=== PATIENT | male | born 1975 | race Two or more races ===

== ENCOUNTER 2022-09-05 19:41 | Emergency (ER) | payer OTHER, SELFPAY ==
--- NOTE | ~2022-09-05 | CT_ITS ---
EXAMINATION: CT ABDOMEN AND PELVIS WITH CONTRAST CLINICAL INFORMATION: Abdominal pain COMPARISON: None TECHNIQUE: Multidetector volumetric images were obtained from the superior aspect of the liver through the pubic symphysis following administration 85 mL of Omnipaque 350 intravenous contrast. Sagittal and coronal reformatted images were obtained on the technologist's workstation. Oral contrast: No This CT examination was performed using dose optimization techniques as appropriate, variously including the following: *Automated exposure control *Adjustment of mA and/or kV according to patient size (this includes techniques or standardized protocols for targeted exams where dose is matched to indication/reason for exam; i.e. extremities or head) *Use of iterative reconstruction technique DLP: 706 mGy-cm FINDINGS: LUNG BASES: The visualized lung bases are unremarkable. LIVER, GALLBLADDER, AND BILIARY TREE: Mild fatty change of liver. No focal liver lesion. No intrahepatic bile duct dilatation. The gallbladder is unremarkable with no evidence of radiopaque gallstones, gallbladder wall thickening, or obvious pericholecystic inflammatory changes. PANCREAS: Unremarkable. SPLEEN: Unremarkable. ADRENAL GLANDS: Unremarkable. KIDNEYS AND URETERS: The kidneys are normal in size, shape, and attenuation. No hydronephrosis, hydroureter, or calculi seen. No perinephric stranding. There are 2 cortical cyst at the mid lower pole of the left kidney. No follow-up imaging is recommended for simple renal cyst. BLADDER: Unremarkable. GASTROINTESTINAL TRACT: The small and large bowel are unremarkable. The appendix is nonvisualized. No inflammation the mesentery.. ABDOMINAL WALL: No significant hernia is appreciated. LYMPH NODES: Normal. VASCULAR: Unremarkable. PELVIC VISCERA: Unremarkable. OSSEOUS STRUCTURES: Unremarkable. CT/CT abdomen pelvis w IV con IMPRESSION: No acute abnormality CT scan abdomen pelvis. Fleischner guidelines were followed.
--- NOTE | 2022-09-05 19:44 | ED_ITS ---
HPI - General Adult General Chief complaint: Abdominal Pain <KARISSA Anthony - Last Filed: 09/05/22 19:45> Stated complaint: abdominal/back pain <KARISSA Anthony - Last Filed: 09/05/22 19:45> Time Seen by Provider: 09/05/22 20:35 <KARISSA Anthony - Last Filed: 09/05/22 19:45> Source: patient <Yair Machado MD - Last Filed: 09/05/22 23:03> Mode of arrival: ambulatory <Yair Machado MD - Last Filed: 09/05/22 23:03> Limitations: no limitations <Yair Machado MD - Last Filed: 09/05/22 23:03> History of Present Illness HPI narrative: Patient presents to the emergency department complaining of abdominal pain x3 days, nausea vomiting as well the pain is in the upper abdomen <Yair Machado MD - Last Filed: 09/05/22 23:03> Onset (ago): day(s) (2) <Yair Machado MD - Last Filed: 09/05/22 23:03> Radiation: non-radiation <Yair Machado MD - Last Filed: 09/05/22 23:03> Severity: moderate <Yair Machado MD - Last Filed: 09/05/22 23:03> Quality: burning <Yair Machado MD - Last Filed: 09/05/22 23:03> Pain Consistency: constant <Yair Machado MD - Last Filed: 09/05/22 23:03> Exacerbating factors: none <Yair Machado MD - Last Filed: 09/05/22 23:03> Treatments prior to arrival: none <Yair Machdao MD - Last Filed: 09/05/22 23:03> Related Data Home medications: Previous Rx's Medication Instructions Recorded omeprazole magnesium 10 mg oral 20 mg PO DAILY #30 ea 09/05/22 suspension,delayed release (Prilosec) ondansetron HCl 4 mg tablet 4 mg PO Q8H PRN nausea and 09/05/22 vomiting 3 days #12 tabs <KARISSA Anthony - Last Filed: 09/05/22 19:45> Allergies/adverse reactions: Allergies Allergy/AdvReac Type Severity Reaction Status Date / Time No Known Allergies Allergy Verified 09/05/22 19:49 <KARISSA Anthony - Last Filed: 09/05/22 19:45> Review of Systems Constitutional: Constitutional: Reports no additional constitutional complaints <Yair Machado MD - Last Filed: 09/05/22 23:03> Eyes: Eyes: Reports no additional eye complaints <Yair Machado MD - Last Filed: 09/05/22 23:03> Cardiovascular: Cardiovascular: Reports no additional cardiovascular complaints <Yair Machado MD - Last Filed: 09/05/22 23:03> Respiratory: Respiratory: Reports no additional respiratory complaints <Yair Machado MD - Last Filed: 09/05/22 23:03> Musculoskeletal: Musculoskeletal: Reports no additional musculoskeletal complaints <Yair Machado MD - Last Filed: 09/05/22 23:03> [facility] Past Medical History [facility] Narrative: none <Yair Machado MD - Last Filed: 09/05/22 23:03> Social History Social History: Social History Alcohol intake: never Smoked in Last 30 Days: No Use of substances other than those prescribed or required for medical reasons: No Advance Directives: No Advance Directives Information Provided: No <KARISSA Anthony - Last Filed: 09/05/22 19:45> Physical Exam ED Vital Signs: Vital Signs - 24 hr 09/05/22 19:46 09/05/22 20:30 09/05/22 20:57 Temperature 97.8 F 98.4 F Pulse Rate 86 85 Respiratory Rate 16 16 18 Blood Pressure 154/78 H 133/82 Pulse Oximetry 98 97 Oxygen Delivery Method Room Air Room Air 09/05/22 21:55 Temperature 98.5 F Pulse Rate 78 Respiratory Rate 17 Blood Pressure 138/70 Pulse Oximetry 95 Oxygen Delivery Method Room Air BMI result Body Mass Index 28.8 <KARISSA Anthony - Last Filed: 09/05/22 19:45> Vital Signs - 24 hr 09/05/22 19:46 09/05/22 20:30 09/05/22 20:57 Temperature 97.8 F 98.4 F Pulse Rate 86 85 Respiratory Rate 16 16 18 Blood Pressure 154/78 H 133/82 Pulse Oximetry 98 97 Oxygen Delivery Method Room Air Room Air 09/05/22 21:55 Temperature 98.5 F Pulse Rate 78 Respiratory Rate 17 Blood Pressure 138/70 Pulse Oximetry 95 Oxygen Delivery Method Room Air BMI result Body Mass Index 28.8 <Yair Machado MD - Last Filed: 09/05/22 23:03> Const General: cooperative <Yair Machado MD - Last Filed: 09/05/22 23:03> Orientation/consciousness: patient oriented x3 <Yair Machado MD - Last Filed: 09/05/22 23:03> HENMT Head: Yes normal to inspection <Yair Machado MD - Last Filed: 09/05/22 23:03> Ears: hearing grossly normal bilaterally <Yair Machado MD - Last Filed: 09/05/22 23:03> Face and sinus: Yes normal facial exam <Yair Machado MD - Last Filed: 09/05/22 23:03> Mouth: Normal oral and palatal mucosa present <Yair Machado MD - Last Filed: 09/05/22 23:03> Neck Neck: Yes normal visual inspection <Yair Machado MD - Last Filed: 09/05/22 23:03> Chest Chest palpation & inspection: normal inspection of the chest <Yair Machado MD - Last Filed: 09/05/22 23:03> Resp Effort & Inspection: normal respiratory effort <Yair Machado MD - Last Filed: 09/05/22 23:03> Cardio Jugular venous distension: no JVD <Yair Machado MD - Last Filed: 09/05/22 23:03> Rate: regular rate <Yair Machado MD - Last Filed: 09/05/22 23:03> Rhythm: regular rhythm <Yair Machado MD - Last Filed: 09/05/22 23:03> GI Inspection: Yes normal to inspection <Yair Machado MD - Last Filed: 09/05/22 23:03> Palpation (GI): Soft to palpation, Tenderness to palpation present (GI), no guarding and not rigid <Yair Machado MD - Last Filed: 09/05/22 23:03> Skin General skin exam: no rashes or lesions noted <Yair Machado MD - Last Filed: 09/05/22 23:03> Neuro General: patient oriented x3 <Yair Machado MD - Last Filed: 09/05/22 23:03> Course Course Course Narrative: RME performed by Chelsea Valencia PA-C. Patient is a 47 year old male presenting to the emergency department with abdominal pain. Patient states that the pain is across his entire abdomen and goes into the back. Labs ordered. Patient placed back in the waiting room pending results and room availability. <KARISSA Anthony - Last Filed: 09/05/22 19:45> Reevaluation(s) Reevaluation #1: better,pain gone ct scan normal but appendix no visualized,this was dislose to the pt will return if recurrent pain,at this time he has no pain in rt lower quadrant nor tenderness localized in the rt lower quadrant. <Yair Machado MD - Last Filed: 09/05/22 23:03> Time: 22:55 <Yair Machado MD - Last Filed: 09/05/22 23:03> Medications Administered Discontinued Medications Generic Name Dose Route Start Last Admin Trade Name Freq PRN Reason Stop Dose Admin Sodium Chloride 1,000 mls @ 999 mls/hr 09/05/22 21:15 09/05/22 21:07 Ns IVCONT 09/05/22 22:15 999 mls/hr .Q1H1M DONNA Administration Iohexol 100 ml 09/05/22 21:32 09/05/22 21:32 Iohexol 350 Mg/Ml 100 Ml Infus..Btl IV 09/05/22 21:33 85 ml ONCE ONE Administration Morphine Sulfate 4 mg 09/05/22 20:51 09/05/22 20:57 Morphine Sulfate 4 Mg/Ml Cartridge IVPUSH 09/05/22 20:52 4 mg ONCE ONE Administration Protocol Ondansetron HCl 4 mg 09/05/22 20:52 09/05/22 20:57 Ondansetron Hcl 4 Mg/2 Ml Vial IVPUSH 09/05/22 20:53 4 mg ONCE ONE Administration <KARISSA Anthony - Last Filed: 09/05/22 19:45> Medications Administered Discontinued Medications Generic Name Dose Route Start Last Admin Trade Name [place] PRN Reason Stop Dose Admin Sodium Chloride 1,000 mls @ 999 mls/hr 09/05/22 21:15 09/05/22 21:07 Ns IVCONT 09/05/22 22:15 999 mls/hr .Q1H1M DONNA Administration Iohexol 100 ml 09/05/22 21:32 09/05/22 21:32 Iohexol 350 Mg/Ml 100 Ml Infus..Btl IV 09/05/22 21:33 85 ml ONCE ONE Administration Morphine Sulfate 4 mg 09/05/22 20:51 09/05/22 20:57 Morphine Sulfate 4 Mg/Ml Cartridge IVPUSH 09/05/22 20:52 4 mg ONCE ONE Administration Protocol Ondansetron HCl 4 mg 09/05/22 20:52 09/05/22 20:57 Ondansetron Hcl 4 Mg/2 Ml Vial IVPUSH 09/05/22 20:53 4 mg ONCE ONE Administration <Yair Machado MD - Last Filed: 09/05/22 23:03> Medical Decision Making Medical Decision Making MDM Narrative: Presented with abdominal pain will get labs CT <Yair Machado MD - Last Filed: 09/05/22 23:03> Differential Diagnosis Differential Diagnoses: The differential diagnosis associated with the presentation includes <Yair Machado MD - Last Filed: 09/05/22 23:03> Differential diagnosis colitis diverticulitis small-bowel obstruction <Yair Machado MD - Last Filed: 09/05/22 23:03> Consult Healthcare Provider Management of the patient was discussed with: Hospitalist <Yair Machado MD - Last Filed: 09/05/22 23:03> Lab Data Result Diagrams: 09/05/22 Unknown 09/05/22 Unknown <KARISSA Anthony - Last Filed: 09/05/22 19:45> Labs: Lab Results 09/05/22 09/05/22 09/05/22 Range/Units 20:33 Unknown Unknown WBC 12.5 H (4.8-10.8) X10*3/uL RBC 5.87 H (4.60-5.80) X10*6/uL Hgb 16.1 (14.0-18.0) g/dl Hct 47.6 (42.0-52.0) % MCV 81.1 (80.0-98.0) fL MCH 27.4 (27.0-33.0) pg MCHC 33.8 (31.0-36.0) g/dl RDW 12.0 (11.0-16.0) % Plt Count 71 L (160-400) X10*3/uL MPV 10.1 (9.4-12.4) fL Immature Gran % (Auto) 0.4 (0.0-0.4) % Neut % (Auto) 88.7 H (45-73) % Lymph % (Auto) 5.7 L (20-40) % Humphreys % (Auto) 4.8 (2-11) % Eos % (Auto) 0.2 (0-4) % Baso % (Auto) 0.2 (0-2) % Lymph # (Auto) 0.7 L (1.2-4.9) X10*3/uL Humph[place]ys # (Auto) 0.6 (0.1-1.2) X10*3/uL Eos # (Auto) 0.0 (0.0-0.4) X10*3/uL Baso # (Auto) 0.0 (0.0-0.2) X10*3/uL Abs Immat Gran (auto) 0.05 H (0.00-0.03) X10*3/uL Absolute Neuts (auto) 11.1 H (2.0-8.3) x10*3/uL Absolute Nucleated RBC 0.000 (0.0-0.012) X10*3/uL Nucleated RBC % (auto) 0.0 (0.0-0.2) /100WBC Sodium 139 (135-145) mmol/L Potassium 4.1 (3.3-5.1) mmol/L Chloride 97 (96-108) mmol/L Carbon Dioxide 31 H (22-29) mmol/L Anion Gap 15 (12-20) BUN 12 (9-16) mg/dL Creatinine 1.10 (0.5-1.4) mg/dL Estim Creat Clear Calc 87.7 Estimated GFR > 60 Random Glucose 306 H (60-115) mg/dL Calcium 9.6 (8.4-10.2) mg/dL Magnesium 1.9 (1.6-2.6) mg/dL Total Bilirubin 1.8 H (0.0-1.0) mg/dL AST 20 (5-37) U/L ALT 40 (0-40) U/L Alkaline Phosphatase 82 (39-117) U/L Total Protein 7.0 (6.5-8.0) g/dL Albumin 4.4 (3.5-5.0) g/dL Lipase 75 (8-78) U/L Urine Color Yellow Urine Appearance Clear Urine pH 6.0 (5.0-9.0) Ur Specific [place] >= 1.030 H (1.005-1.025) Urine Protein Negative (Neg-Trace) mg/dL Urine Glucose (UA) >=1000 H (Negative) mg/dL Urine Ketones Negative (Negative) mg/dL Urine Blood Negative (Negative) Urine Nitrite Negative (Negative) Ur Leukocyte Esterase Negative (Negative) Urine RBC 0-2 (0-2) /HPF Urine WBC 0-5 (0-5) /HPF Ur Squamous Epith Cells 0-2 (0-2) /HPF Urine Bacteria None Seen (None Seen) Hyaline Casts 0-2 (0-2) /LPF Influenza Type A (PCR) (Negative) Influenza Type B (PCR) (Negative) RSV RNA Qual (PCR) (Negative) SARS-CoV-2 RNA (RT-PCR) (Negative) 09/05/22 Range/Units Unknown WBC (4.8-10.8) X10*3/uL RBC (4.60-5.80) X10*6/uL Hgb (14.0-18.0) g/dl Hct (42.0-52.0) % MCV (80.0-98.0) fL MCH (27.0-33.0) pg MCHC (31.0-36.0) g/dl RDW (11.0-16.0) % Plt Count (160-400) X10*3/uL MPV (9.4-12.4) fL Immature Gran % (Auto) (0.0-0.4) % Neut % (Auto) (45-73) % Lymph % (Auto) (20-40) % Humphreys % (Auto) (2-11) % Eos % (Auto) (0-4) % Baso % (Auto) (0-2) % Lymph # (Auto) (1.2-4.9) X10*3/uL [place] # (Auto) (0.1-1.2) X10*3/uL Eos # (Auto) (0.0-0.4) X10*3/uL Baso # (Auto) (0.0-0.2) X10*3/uL Abs Immat Gran (auto) (0.00-0.03) X10*3/uL Absolute Neuts (auto) (2.0-8.3) x10*3/uL Absolute Nucleated RBC (0.0-0.012) X10*3/uL Nucleated RBC % (auto) (0.0-0.2) /100WBC Sodium (135-145) mmol/L Potassium (3.3-5.1) mmol/L Chloride (96-108) mmol/L Carbon Dioxide (22-29) mmol/L Anion Gap (12-20) BUN (9-16) mg/dL Creatinine (0.5-1.4) mg/dL Estim Creat Clear Calc Estimated GFR Random Glucose (60-115) mg/dL Calcium (8.4-10.2) mg/dL Magnesium (1.6-2.6) mg/dL Total Bilirubin (0.0-1.0) mg/dL AST (5-37) U/L ALT (0-40) U/L Alkaline Phosphatase (39-117) U/L Total Protein (6.5-8.0) g/dL Albumin (3.5-5.0) g/dL Lipase (8-78) U/L Urine Color Urine Appearance Urine pH (5.0-9.0) Ur Specific [place] (1.005-1.025) Urine Protein (Neg-Trace) mg/dL Urine Glucose (UA) (Negative) mg/dL Urine Ketones (Negative) mg/dL Urine Blood (Negative) Urine Nitrite (Negative) Ur Leukocyte Esterase (Negative) Urine RBC (0-2) /HPF Urine WBC (0-5) /HPF Ur Squamous Epith Cells (0-2) /HPF Urine Bacteria (None Seen) Hyaline Casts (0-2) /LPF Influenza Type A (PCR) NEGATIVE (Negative) Influenza Type B (PCR) NEGATIVE (Negative) RSV RNA Qual (PCR) NEGATIVE (Negative) SARS-CoV-2 RNA (RT-PCR) NEGATIVE (Negative) <KARISSA Anthony - Last Filed: 09/05/22 19:45> Lab Results 09/05/22 09/05/22 09/05/22 Range/Units 20:33 Unknown Unknown WBC 12.5 H (4.8-10.8) X10*3/uL RBC 5.87 H (4.60-5.80) X10*6/uL Hgb 16.1 (14.0-18.0) g/dl Hct 47.6 (42.0-52.0) % MCV 81.1 (80.0-98.0) fL MCH 27.4 (27.0-33.0) pg MCHC 33.8 (31.0-36.0) g/dl RDW 12.0 (11.0-16.0) % Plt Count 71 L (160-400) X10*3/uL MPV 10.1 (9.4-12.4) fL Immature Gran % (Auto) 0.4 (0.0-0.4) % Neut % (Auto) 88.7 H (45-73) % Lymph % (Auto) 5.7 L (20-40) % Humphreys % (Auto) 4.8 (2-11) % Eos % (Auto) 0.2 (0-4) % Baso % (Auto) 0.2 (0-2) % Lymph # (Auto) 0.7 L (1.2-4.9) X10*3/uL [place] # (Auto) 0.6 (0.1-1.2) X10*3/uL Eos # (Auto) 0.0 (0.0-0.4) X10*3/uL Baso # (Auto) 0.0 (0.0-0.2) X10*3/uL Abs Immat Gran (auto) 0.05 H (0.00-0.03) X10*3/uL Absolute Neuts (auto) 11.1 H (2.0-8.3) x10*3/uL Absolute Nucleated RBC 0.000 (0.0-0.012) X10*3/uL Nucleated RBC % (auto) 0.0 (0.0-0.2) /100WBC Sodium 139 (135-145) mmol/L Potassium 4.1 (3.3-5.1) mmol/L Chloride 97 (96-108) mmol/L Carbon Dioxide 31 H (22-29) mmol/L Anion Gap 15 (12-20) BUN 12 (9-16) mg/dL Creatinine 1.10 (0.5-1.4) mg/dL Estim Creat Clear Calc 87.7 Estimated GFR > 60 Random Glucose 306 H (60-115) mg/dL Calcium 9.6 (8.4-10.2) mg/dL Magnesium 1.9 (1.6-2.6) mg/dL Total Bilirubin 1.8 H (0.0-1.0) mg/dL AST 20 (5-37) U/L ALT 40 (0-40) U/L Alkaline Phosphatase 82 (39-117) U/L Total Protein 7.0 (6.5-8.0) g/dL Albumin 4.4 (3.5-5.0) g/dL Lipase 75 (8-78) U/L Urine Color Yellow Urine Appearance Clear Urine pH 6.0 (5.0-9.0) Ur Specific [place] >= 1.030 H (1.005-1.025) Urine Protein Negative (Neg-Trace) mg/dL Urine Glucose (UA) >=1000 H (Negative) mg/dL Urine Ketones Negative (Negative) mg/dL Urine Blood Negative (Negative) Urine Nitrite Negative (Negative) Ur Leukocyte Esterase Negative (Negative) Urine RBC 0-2 (0-2) /HPF Urine WBC 0-5 (0-5) /HPF Ur Squamous Epith Cells 0-2 (0-2) /HPF Urine Bacteria None Seen (None Seen) Hyaline Casts 0-2 (0-2) /LPF Influenza Type A (PCR) (Negative) Influenza Type B (PCR) (Negative) RSV RNA Qual (PCR) (Negative) SARS-CoV-2 RNA (RT-PCR) (Negative) 09/05/22 Range/Units Unknown WBC (4.8-10.8) X10*3/uL RBC (4.60-5.80) X10*6/uL Hgb (14.0-18.0) g/dl Hct (42.0-52.0) % MCV (80.0-98.0) fL MCH (27.0-33.0) pg MCHC (31.0-36.0) g/dl RDW (11.0-16.0) % Plt Count (160-400) X10*3/uL MPV (9.4-12.4) fL Immature Gran % (Auto) (0.0-0.4) % Neut % (Auto) (45-73) % Lymph % (Auto) (20-40) % Humphreys % (Auto) (2-11) % Eos % (Auto) (0-4) % Baso % (Auto) (0-2) % Lymph # (Auto) (1.2-4.9) X10*3/uL [place] # (Auto) (0.1-1.2) X10*3/uL Eos # (Auto) (0.0-0.4) X10*3/uL Baso # (Auto) (0.0-0.2) X10*3/uL Abs Immat Gran (auto) (0.00-0.03) X10*3/uL Absolute Neuts (auto) (2.0-8.3) x10*3/uL Absolute Nucleated RBC (0.0-0.012) X10*3/uL Nucleated RBC % (auto) (0.0-0.2) /100WBC Sodium (135-145) mmol/L Potassium (3.3-5.1) mmol/L Chloride (96-108) mmol/L Carbon Dioxide (22-29) mmol/L Anion Gap (12-20) BUN (9-16) mg/dL Creatinine (0.5-1.4) mg/dL Estim Creat Clear Calc Estimated GFR Random Glucose (60-115) mg/dL Calcium (8.4-10.2) mg/dL Magnesium (1.6-2.6) mg/dL Total Bilirubin (0.0-1.0) mg/dL AST (5-37) U/L ALT (0-40) U/L Alkaline Phosphatase (39-117) U/L Total Protein (6.5-8.0) g/dL Albumin (3.5-5.0) g/dL Lipase (8-78) U/L Urine Color Urine Appearance Urine pH (5.0-9.0) Ur Specific [place] (1.005-1.025) Urine Protein (Neg-Trace) mg/dL Urine Glucose (UA) (Negative) mg/dL Urine Ketones (Negative) mg/dL Urine Blood (Negative) Urine Nitrite (Negative) Ur Leukocyte Esterase (Negative) Urine RBC (0-2) /HPF Urine WBC (0-5) /HPF Ur Squamous Epith Cells (0-2) /HPF Urine Bacteria (None Seen) Hyaline Casts (0-2) /LPF Influenza Type A (PCR) NEGATIVE (Negative) Influenza Type B (PCR) NEGATIVE (Negative) RSV RNA Qual (PCR) NEGATIVE (Negative) SARS-CoV-2 RNA (RT-PCR) NEGATIVE (Negative) <Yair Machado MD - Last Filed: 09/05/22 23:03> Discharge Plan Discharge Clinical Impression: Abdominal pain <KARISSA Anthony - Last Filed: 09/05/22 19:45> Patient Disposition: Home, Self-Care <KARISSA Anthony - Last Filed: 09/05/22 19:45> Instructions: Abdominal Pain (ED) <KARISSA Anthony - Last Filed: 09/05/22 19:45> Additional Instructions: Follow-up with your primary care physician return if you worse recurrent abdominal pain persistent lower abdominal pain with nausea. The provider thet treat you today will be here tomorrow so if you get worse please come back <KARISSA Anthony - Last Filed: 09/05/22 19:45> Prescriptions: New Prilosec 10 mg susp,delayed release for recon 20 mg PO DAILY Qty: 30 0RF ondansetron HCl 4 mg tablet 4 mg PO Q8H PRN (Reason: nausea and vomiting) 3 Days Qty: 12 0RF <KARISSA Anthony - Last Filed: 09/05/22 19:45>
[2022-09-05 19:46] VITALS: BP 154/78; PULSE 86; RESP 16; TEMP 36.6; O2SAT 98; BMI 28.8
[2022-09-05 20:13] LABS: MANUAL DIFF FLAG NO
[2022-09-05 20:20] LABS: Basophils Percent Auto 0.2 % (0-2); Eosinophils Percent Auto 0.2 % (0-4); Hematocrit 47.6 % (42.0-52.0); Hemoglobin 16.1 g/dl (14.0-18.0); Imm Gran Abs Auto 0.05 X10*3/uL (0.00-0.03); Imm Gran Pct Auto 0.4 % (0.0-0.4); Lymphocytes Absolute Auto 0.7 X10*3/uL (1.2-4.9); Lymphocytes Percent Auto 5.7 % (20-40); Mean Corpuscular HGB Conc 33.8 g/dl (31.0-36.0); Mean Corpuscular Hemoglobin 27.4 pg (27.0-33.0); Mean Corpuscular Volume 81.1 fL (80.0-98.0); Mean Platelet Volume 10.1 fL (9.4-12.4); Monocytes Absolute Auto 0.6 X10*3/uL (0.1-1.2); Monocytes Percent Auto 4.8 % (2-11); Neutrophils Absolute Auto 11.1 x10*3/uL (2.0-8.3); Neutrophils Percent Auto 88.7 % (45-73); Red Blood Count 5.87 X10*6/uL (4.60-5.80); White Blood Count 12.5 X10*3/uL (4.8-10.8)
[2022-09-05 20:30] VITALS: BP 133/82; PULSE 85; RESP 16; TEMP 36.9; O2SAT 97
[2022-09-05 20:30] LABS: Alanine Aminotransferase 40 U/L (0-40); Albumin Level 4.4 g/dL (3.5-5.0); Alkaline Phosphatase 82 U/L (39-117); Anion Gap 15 (12-20); Aspartate Amino Transferase 20 U/L (5-37); Bilirubin Total 1.8 mg/dL (0.0-1.0); Blood Urea Nitrogen 12 mg/dL (9-16); Calcium 9.6 mg/dL (8.4-10.2); Carbon Dioxide 31 mmol/L (22-29); Chloride 97 mmol/L (96-108); Creatinine Clr Calc Pharmacy 87.7; Estimated Glomerular Filt Rate > 60; Glucose Random 306 mg/dL (60-115); Lipase 75 U/L (8-78); Magnesium 1.9 mg/dL (1.6-2.6); Potassium 4.1 mmol/L (3.3-5.1); Sodium 139 mmol/L (135-145)
--- NOTE | 2022-09-05 20:33 | MHC.EDTECH ---
THIS PCT ASSUMED CARE OF PATIENT AT 2014 ,VITALS SIGN TAKEN AND URINE SAMPLE SEND TO LAB .
[2022-09-05 20:40] LABS: Appearance Urine Clear; Color Urine Yellow; Glucose Urine UA >=1000 mg/dL (Negative); Leukocyte Esterase Urine Negative (Negative); Nitrite Urine Negative (Negative); Specific Gravity - Urine >= 1.030 (1.005-1.025); UMIC TRIGGER UACC YES; Urine Blood Negative (Negative); Urine Ketones Negative (Negative); Urine Protein Negative (Neg-Trace)
[2022-09-05 20:45] LABS: Bacteria Urine None Seen (None Seen); Hyaline Casts Urine 0-2 /LPF (0-2); RBC Urine 0-2 /HPF (0-2); Squamous Epithelial Cell Urine 0-2 /HPF (0-2); WBC Urine 0-5 /HPF (0-5)
[2022-09-05 20:51] LABS: Platelet Count 71 X10*3/uL (160-400)
[2022-09-05 20:56] LABS: Influenza A PCR NEGATIVE (Negative); Influenza B PCR NEGATIVE (Negative); Resp Syncy Virus RNA Qual PCR NEGATIVE (Negative); SARS COV2 PCR INHOUSE NEGATIVE (Negative)
[2022-09-05 20:57] VITALS: RESP 18
[2022-09-05] MEDS: ondansetron HCL 4 MG/2 ML VIAL IVPUSH (20:57)
[2022-09-05] MEDS: Morphine Sulfate 4 MG/ML CARTRIDGE IVPUSH (20:57)
[2022-09-05] MEDS: 0.9 % Sodium Chloride 1,000 ML 999 ML IVCONT (21:07)
--- NOTE | 2022-09-05 21:10 | PC.NURSE ---
PT A&Ox4, reports constant 10/10 lower abd pain, radiating to lower back for 3 days. PT reports N/V. Last BM was today. ABD tender to touch to lower quadrants, hypoactive bowel sounds.
[2022-09-05] MEDS: iohexoL 350 MG/ML 100 ML INFUS..BTL IV (21:32)
[2022-09-05 21:55] VITALS: BP 138/70; PULSE 78; RESP 17; TEMP 36.9; O2SAT 95
== END 2022-09-05 23:29 | disposition home or self-care (01) ==
PROVIDERS: Physician Assistant Medical; Emergency Provider Emergency Medicine
DX: R10.30 Lower abdominal pain, unspecified (principal); Z20.822 Contact with and (suspected) exposure to COVID-19; Z20.828 Contact with and (suspected) exposure to other viral communicable diseases
CPT/HCPCS: 0241U; 74177; 80053; 81001; 83690; 83735; 85025; 96361; 96374; 96375; 99284; 99285; J2270; J2405; Q9967

== ENCOUNTER 2024-05-17 22:39 | Emergency (ER) | payer OTHER, SELFPAY ==
--- NOTE | ~2024-05-17 | XR_ITS ---
EXAMINATION: XR CHEST CLINICAL INFORMATION: Cough for one week COMPARISON: None available. TECHNIQUE: Frontal view of the chest was obtained. FINDINGS: Normal appearance of the cardiomediastinal structures. No effusions or pneumothoraces. Normal pattern of pulmonary vasculature. No focal pulmonary consolidation. Mild multilevel endplate osteophytosis of the thoracic spine partially visualized. XR/XR chest 1V IMPRESSION: No acute cardiopulmonary abnormalities identified. Lungs clear. Electronically signed by: Colin Shepard MD 05/18/2024 01:28 AM EDT
[2024-05-17 22:49] VITALS: BP 149/76; PULSE 77; RESP 18; TEMP 36.8; O2SAT 97; BMI 28.9
[2024-05-17 23:53] LABS: Influenza A PCR NEGATIVE (Negative); Influenza B PCR NEGATIVE (Negative); Resp Syncy Virus RNA Qual PCR NEGATIVE (Negative); SARS COV2 PCR INHOUSE NEGATIVE (Negative)
--- NOTE | 2024-05-18 00:56 | PC.NURSE ---
Pt no answer when called for available room.
== END 2024-05-18 01:00 | disposition left against medical advice (07) ==
LOC: HO.ED 05-18 00:59
PROVIDERS: Emergency Provider Emergency Medicine; PCP Nurse Practitioner Family
DX: R09.89 Other specified symptoms and signs involving the circulatory and respiratory systems (principal); Z53.21 Procedure and treatment not carried out due to patient leaving prior to being seen by health care provider; Z03.818 Encounter for observation for suspected exposure to other biological agents ruled out
CPT/HCPCS: 0241U; 71045; 99281

== ENCOUNTER 2024-12-18 22:48 | Emergency (ER) | payer OTHER, SELFPAY ==
--- NOTE | ~2024-12-18 | XR_ITS ---
CLINICAL HISTORY: chest pain 1 view chest x-ray. Comparison: CR/SR - XR CHEST 1V - 05/17/24 23:05 EDT Findings: No consolidation, pneumothorax, or effusion. Heart size normal. Impression: 1. No acute cardiopulmonary process. No focal pulmonary consolidation. This document has been electronically signed by: Levi Bell MD on 12/19/2024 01:40:53
[2024-12-18 22:55] VITALS: BP 181/95; PULSE 82; RESP 18; TEMP 36.8; O2SAT 98; BMI 31.8
--- NOTE | 2024-12-18 22:59 | ECG_ITS ---
Test Reason : CP Blood Pressure : */* mmHG Vent. Rate : 87 BPM Atrial Rate : 87 BPM P-R Int : 170 ms QRS Dur : 82 ms QT Int : 334 ms P-R-T Axes : 1 47 25 degrees QTcB Int : 401 ms Normal sinus rhythm Nonspecific T wave abnormality Abnormal ECG No previous ECGs available Referred By: Generic ED Physician Electronically Signed By: SEYMOUR LONG MD
[2024-12-18 23:18] LABS: MANUAL DIFF FLAG NO
[2024-12-18 23:19] LABS: Basophils Percent Auto 0.3 % (0-2); Eosinophils Absolute Auto 0.1 X10*3/uL (0.0-0.4); Eosinophils Percent Auto 2.4 % (0-4); Hematocrit 45.7 % (42.0-52.0); Imm Gran Abs Auto 0.02 X10*3/uL (0.00-0.03); Imm Gran Pct Auto 0.3 % (0.0-0.4); Lymphocytes Absolute Auto 1.4 X10*3/uL (1.2-4.9); Mean Corpuscular HGB Conc 32.8 g/dl (31.0-36.0); Mean Corpuscular Hemoglobin 27.9 pg (27.0-33.0); Mean Corpuscular Volume 85.1 fL (80.0-98.0); Mean Platelet Volume 9.7 fL (9.4-12.4); Monocytes Absolute Auto 0.4 X10*3/uL (0.1-1.2); Monocytes Percent Auto 7.1 % (2-11); Neutrophils Absolute Auto 3.7 x10*3/uL (2.0-8.3); Neutrophils Percent Auto 64.9 % (45-73); Platelet Count 224 X10*3/uL (160-400); Red Blood Count 5.37 X10*6/uL (4.60-5.80); Red Cell Distribution Width 12.4 % (11.0-16.0); White Blood Count 5.8 X10*3/uL (4.8-10.8)
[2024-12-18 23:32] LABS: Alanine Aminotransferase 43 U/L (0-40); Albumin Level 4.3 g/dL (3.5-5.0); Alkaline Phosphatase 60 U/L (39-117); Anion Gap 14 (12-20); Aspartate Amino Transferase 30 U/L (5-37); Bilirubin Total 0.6 mg/dL (0.0-1.0); Blood Urea Nitrogen 13 mg/dL (9-16); Calcium 9.3 mg/dL (8.4-10.2); Carbon Dioxide 28 mmol/L (22-29); Chloride 105 mmol/L (96-108); Creatinine Clr Calc Pharmacy 106.2; Estimated Glomerular Filt Rate > 60; Glucose Random 128 mg/dL (60-115); Potassium 3.7 mmol/L (3.3-5.1); Sodium 143 mmol/L (135-145)
[2024-12-18 23:40] LABS: Troponin-I High Sensitivity < 2.7 ng/L (<3.5-35.0)
--- OUTSIDE RECORDS SUMMARY | 2024-12-18 23:45 | XMS_ITS | Encounter Summary ---
Author Organization [facility] Address [address] [place] [address] Care Team Providers Care Cdl Flatbed Truck Driver Name Role Phone Ruel Franklin FIRST HELPER Primary Care Prov ider Encounter Details Date Type Department Care Team (Late st Contact Info) Description 12/14/2024 Scan Pathology [facility] [address] [place] [phone] Ruel Franklin FNP [address] [place] [address] Social History Tobacco Use Types Packs/Day Years Used Date Smoking Tobacco: Former Smokeless Tobacco: Never Comments:stopped smoking at 20 yrs of age Alcohol Use Standard Drinks/Week Comments No 0 (1 standard drink = 0.6 oz pur e alcohol) none x5 yrs, very rare Social Connections Answer Date Recorded Connectedness 0 10/22/2022 Financial Resource Strain Answer Date R ecorded Financial Resource Strain 0 2022 Stress Answer Date Recorded Stress 0 10/22/2022 Physical Activity Answer Date Recorded Physical Activity 0 04/02/2019 Food Insecurity Answer Date Recorded Food 0 10/22/2022 Transportation Needs Answer Date Record ed Transportation 0 10/22/2022 Housing Stability Answer Date Recorded Housing 0 10/22/2022 Safety and Environment Answer Date Jagdeep rded Safety 0 10/22/2022 Utilities Answer Date Recorded Utilities 0 10/22/2022 Employment Answer Date Recorded Stress 0 10/22/2022 Sex and Gender Information Value Date Recorded Sex Assigned at Male 06/24/2017 6:42 AM PST Legal Sex Male 11:36 AM PDT Gender Identity Male 06/24/2017 6:42 AM PST Sexual Orientation Straight 06/24/2017 6: 42 AM PST 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 Not on file Not on file documented as of this encounter Plan of Treatment Upcoming Encounters Date Type Department Care Team (Late st Contact Info) Description 01/03/2025 9:40 AM EDT Office Visit [facility] [address] [place] [phone] AntiDedrick ramirez, PharmD [address] [place] [address] documented as of this encounter Procedures Procedure Name Priority Date/Time Associated Diagnosis Comments PATHOLOGY SCANNED DOCUMENT 12/14/2024 3:00 AM EDT documented in this encounter Results * PATHOLOGY SCANNED DOCUMENT (12/14/2024 3:00 AM EDT) 12/14/2024 3:00 AM EDT Ruel MCMILLAN [facility] Fi nal Result documented in this encounter Visit Diagnoses Not on filedocumented in this encounter Additional Health Concerns Assessment Noted Time PHQ-9 Depression Total Score: 0 12/01/19 24 10:02 AM PDT documented as of this encounter Care Teams Cdl Flatbed Truck Driver Relationship Specialty Start Date End Date Ruel Franklin FNP [address] [place] [address] PCP - General Family Medicine, SERVICE CONSULTANT 07/07/20 documented as of this encounter
--- OUTSIDE RECORDS SUMMARY | 2024-12-18 23:45 | XMS_ITS | Clinical Summary ---
Author Organization [facility] Address [address] [place] [address] Care Team Providers Care Edge Cutter Name Role Phone Ruel Franklin Primary Care Prov ider Source Comments PLEASE NOTE, if this patient is a minor, it may be UNLAWFUL to discuss sensitive information that is contained in these records (such as FAMILY PLANNING, MENTAL HEALTH or SUBSTANCE ABUSE) with the minor patient's parent or other person without the patient's specific authorization.[facility] Allergies Active Allergy Reactions Criticality Noted Date Comments Tramadol Other (See Comments) 10/01/2021 Chest pain Medications blood sugar diagnostic (FREESTYLE LITE STRIPS) stripsIndications: Type 2 diabetes mellitus with both eyes affected by mild nonproliferative retinopathy without macular edema, with long-term current use of insulin ([facility]) Test BG BID UD DXE11.3293 Freestyle Lite Test Strips Pls Deliver 200 Each 024 Active blood-glucose meter (FREESTYLE LITE METER) monitoring kit as needed for blood glucose monitoring Use to check BG daily. 1 Each 024 Active lancets (FREESTYLE LANCETS) 28 gaugeIndications:T ype 2 diabetes mellitus with both eyes affected by mild nonproliferative retinopathy without macular edema, with long-term current use of insulin ([facility]-CMS) Test BG BID UD DXE11.3293 Freestyle Lancets [address]s Deliver 200 Each 11 024 Active pen needle, diabetic 31 gauge x 5/16 ndleIndications:Ty pe 2 diabetes mellitus with hyperglycemia, with long-term current use of insulin ([facility]) Use to inject insulin 4x/day. UAD. 100 Each 11 024 Active valsartan (DIOVAN) 160 mg tablet TAKE ONE TABLET BY MOUTH EVERY DAY 90 Tablet 025 Active empagliflozin (JARDIANCE) 25 mg tabIndications: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, with long-term current use of insulin ([facility]) Take 1 Tablet by mouth every morning 90 Tablet 1 025 Active insulin degludec (TRESIBA FLEXTOUCH U-200) 200 unit/mL (3 mL)Indications: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, with long-term current use of insulin ([facility]) Inject 45 Units into the skin nightly at bedtime DXE11.3293 Decreased 18 mL 1 025 Active NOVOLOG FLEXPEN U-100 INSULIN 100 unit/mL (3 mL)Indications: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, with long-term current use of insulin ([facility]) INJECT 6-10 UNITS SKIN THREE TIMES DAILY BEFORE meals INJECT EIGHT UNITS if eating a nigger meal max 24 UNITS DAILY 15 mL 1 [address] tabletIndications: History of OH (myocardial infarction) Take 1 Tablet by mouth once daily 90 Tablet 3 025 Active rosuvastatin (CRESTOR) 20 mg tablet Take 1 Tablet by mouth nightly at bedtime 90 Tablet 3 025 Active OZEMPIC 2 mg/dose (8 mg/3 mL) pen injector INJECT 2mg SUBCUTANEOUSLY ONCE a WEEK 3 mL 1 025 Active OZEMPIC 2 mg/dose (8 mg/3 mL) pen injector INJECT 2mg SUBCUTANEOUSLY ONCE a WEEK 3 mL 1 025 11/29 Discontinued Active Problems Problem Noted Date Diagnosed Date History of colon polyps 10/20/2024 Overview (12/16/2024): Two tubular adenomas at [facility] 2023- needs repeat in 5 years 01/20/2024 - Rectum, x 2 polypectomy - Two tubular adenomas Type 2 diabetes mellitus wit h hyperglycemia, with long-term current use of insulin ([facility]) 10/20/2024 Class 1 obesity due to exces s calories with serious comorbidity and body mass index (BMI) of 32.0 to 32.9 in adult 12/01/2023 History of OH (myocardial infarction) 08/20/2021 Overview (08/20/2021): Infarct at [facility] 08/2021 Microalbuminuria 04/04/2015 Overview (06/06/2015): rec note from renal dated 03/29/15, saw Demetrio Renteria, #[phone]; no chg in plan expect for pt to try to lose another 15lbs with goal weight being under 190 Essential hypertension 02/21/2015 Overview (02/21/2015): [facility] began 02/21/15 High cholesterol 02/21/2015 Overview (08/29/2015): Lab Results Component Value Date TRIGLYC 101 01/31/2015 CHOL 187 01/31/2015 HDL 50 01/31/2015 LDL 117* 01/31/2015 Statin begun, zocor 20 Lab Results Component Value Date LDL 87 08/16/2015 Perfect re check in November Type 2 diabetes mellitus wit h both eyes affected by mild nonproliferative retinopathy without macular edema, with long-term current use of insulin ([facility]) 09/27/2014 Overview (10/20/2024): October 2024- pt decided to get second opinion regarding diabetic cataract surgery November 2023- reports right dm cataract, will do surgery after getting back from [place] (Eye and Lasik) No retinopathy Xavi Dhaliwal MD eye exam February Outgoing call: [address], [place] [address] I called and spoke to Yanira at the office to get his report for visit on 02/05/2015/jamila Sund[facility] eye [facility] # [phone] 08/02/09 no retinaopathy a1c in 2006 112.4 dec to 6.7 in 3 months! 6.5 in Aug [facility]: has a cataract in right eye Lab Results Component Value Date HGBA1C 11.8* 01/31/2015 Lab Results Component Value Date CREATININE 0.89 01/31/2015 URCREATININE 235 01/31/2015 EGFR > 60 01/31/2015 Lab Results Component Value Date GLUCOSE 220* 01/31/2015 EAG 292 01/31/2015 micro albumin 100.8 01/31/15 Refer to Vicky 02/01/15 Elevated LFTs 09/27/2014 Overview (02/21/2015): In chart 2009 hep panel neg Lab Results Component Value Date PROTEIN 6.7 01/31/2015 AST 32 01/31/2015 ALT 51 01/31/2015 ALKPHOS 60 01/31/2015 BILI 0.6 01/31/2015 Resolved Problems Problem Noted Date Diagnosed Date Resolved Date Obesity (BMI 30.0-34.9) 04/01/201711/09 PHYSICAL 07/30/16 07/31/2016 10/06/2018 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 Saw sma- neuro saw Dr. Patino 05/30/16- heel numbness- had emg done 05/26 which was normal- dx myofacial syndrome- a/w waking w left foot numbness, and LLE numbness after ext bicycle ride. No bells palsy mostly resolved- he advised PT and the pt agreed- pt taped eye shut to protect at night- ( self taught- no one advised him to do this)---if it re occurs Sukumar would test for demyelinating dz- Saw speech path 03/10/16 plan 1 x week for 2-4 week [facility]- worked with Tawny espinoza/ NAILA Powers ? Pt was seen on 03/10/16 i requested for notes to be faxed ? Previous Messages ?? ----- Message ----- ? From: NAILA Yin ? Sent: 03/05/2016 ?? 7:02 AM ? To: Dottie Felix Please look into speech ref 'FAXED Thank you ??Shira RLL pneumonia 10/03/2015 07/31/2016 Overview (10/03/2015): txwith z pack resolved Cough 08/13/2015 07/31/2016 Overview (08/13/2015): Saw Roger-in SDC, tessalon and pro air rxed Vasectomy planned 07/26/2015 07/06/2016 Overview (08/29/2015): Saw [facility] urology 07/13/15 Norman nelson MD #[phone], sched in near future Done aug 24 Diabetic eye exam 05/16/15 No retinopathy 06/01/2015 01/26/2019 Overview (06/01/2015): F/u one year [facility] #[phone] Generalized abdominal pain 09/27/2014 1 10/01/2015 Overview (09/27/2014): 02/28/10 request francheska spleen u/s Onychomycosis 09/27/2014 12/01/2023 Overview (07/06/2016): sagrario 05/13/16- 1. dx onychomycosis right great toe-2. tinea pedis- rx econazole and 3. wart- left ring finger- plan liq nitro r/t [address] doc eval Dr. Espinoza #[phone] Rib pain on left side 09/27/20142015 Overview (09/27/2014): 09/03/07 normal film History of EKG 09/27/2014 07/31/2016 Overview (09/27/2014): 01/25/07 NSR with early repolarization Hepatitis B antibody positiv e: + for hep A antibody also 02/200909/27/2014 07/31/2016 Encounters Date Type Department Care Team Description 12/14/2024 Scan Pathology [facility] [address] [place] [address] Ruel Franklin FNP 10/23/2024 Interim Notes [address] [phone] Ruel Franklin FNP 10/20/2024 8:40 AM EDT Office Visit [address] [phone] Ruel Franklin FNP Type 2 diabetes mellitus with both eyes affected by mild nonproliferative retinopathy without macular edema, with long-term current use of insulin ([facility] (Primary Dx); History of colon polyps; Essential hypertension; Class 1 obesity due to excess calories with serious comorbidity and body mass index (BMI) of 31.0 to 31.9 in adult; Type 2 diabetes mellitus with hyperglycemia, with long-term current use of insulin [facility] History of OH (myocardial infarction) from Last 3 Months Family History Medical History Relation Name Comments Hypertension Brother has #3 Asthma Father + tob Cancer Father + tob lung cancer Hypertension Father + tob Diabetes Maternal Aunt Diabetes Maternal Uncle Diabetes Mother Heart attack Mother at age 72 Hypertension Mother Kidney disease Mother Diabetes Sister has #1 Relation Name Status Comments Brother has #3 Alive Father + tob Maternal Aunt Maternal Grandfather old age Maternal Grandmother mi at 72 fatal Maternal Uncle Mother Paternal Grandfather 75 uri Paternal Grandmother old age 93 Sister has #1 Alive Social History Tobacco Use Types Packs/Day Years Used Date Smoking Tobacco: Former Smokeless Tobacco: Never Tobacco Cessation:Counseling Given: Not Answered Comments:stopped smoking at 20 yrs of age [...] 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 Not on file Not on file Last Filed Vital Signs Vital Sign Reading Time Taken Comments Blood Pressure 122/70 10/20/2024 8:55 AM EDT Pulse 77 10/20/2024 8:55 AM EDT Temperature 36.7 ??C (98.1 ??F) 10/20/2024 8:55 AM ED T Respiratory Rate 19 10/20/2024 8:55 AM EDT Oxygen Saturation 99% 07/21/2024 9:23 AM EST Inhaled Oxygen Concentration - - Weight 94.3 kg (208 lb) 10/20/2024 8:55 AM EDT Height 172.7 cm (5' 8 ) 10/20/2024 8:55 AM EDT Body Mass Index 31.63 10/20/2024 8:55 AM EDT Plan of Treatment Upcoming Encounters Date Type Department Care Team (Late st Contact Info) Description 01/03/2025 9:40 AM EDT Office Visit [facility] [address] [place] [phone] Dedrick Reynolds, PharmD [address] [place] [address] Health Maintenance Due Date Last Done Comments Anxiety Screening 1974 Dental Examination 1974 Syphilis Screening 02/01/2016 01/31/2015 CT Colonography 2019 Colonoscopy 2019 Colorectal Cancer Screening 2019 FIT/gFOBT 2019 Fecal DNA 2019 Flexible Sigmoidoscopy 2019 Bil-WRATU-09 ( season) 2024 Retinopathy Screening 05/05/2024 05/05/2023 , 05/05/2023, 03/31/2023, Additional history exists Alcohol and Drug Screen 08/10/2024 12/01/19 24, 10/22/2022, 08/20/2021, Additional history exists Depression Annual Screen 08/10/2024 024, 10/06/2018, 07/05/2018 Imm-Zoster, Recombinant (1 of 2) 2024 Annual Preventive Care Visit 11/30/2024, 08/15/2020, 07/31/2016 Diabetes Foot Exam 11/30/2024 12/01/2023, 0 10/22/2022, 10/22/2022, Additional history exists Diabetes HbA1c 04/22/2025 10/20/2024, 07/10, 03/29/2024, Additional history exists Lipid Screening 10/20/2025 10/20/2024, 11/09, 10/22/2022, Additional history exists Serum Creatinine 10/20/2025 10/20/2024, , 12/20/2021, Additional history exists Tobacco Screening 10/20/2025 10/20/2024, , 06/30/2023 Urine Albumin Creatinine Rat io Screening 10/20/2025 10/20/2024, 08/15/2020, 07/05/2018, Additional history exists HIV Screening Completed 01/31/2015 Hepatitis C Screening Completed 01/31/2015 Imm-DTaP/Tdap/Td Discontinued Imm-Hepatitis B Discontinued Imm-Influenza Discontinued Imm-Pneumococcal Discontinued Procedures Procedure Name Priority Date/Time Associated Diagnosis Comments PATHOLOGY SCANNED DOCUMENT 12/14/2024 3:00 AM EDT RFLX - REFLEXIVE URINE CULTURE Routine 10/20/2024 9:24 AM EDT Type 2 diabetes mellitus with both eyes affected by mild nonproliferative retinopathy without macular edema, with long-term current use of insulin ([facility]) MICROALBUMIN/CREATIN INE RATIO, URINE, RANDOM Routine 10/20/2024 9:24 AM EDT Type 2 diabetes mellitus with both eyes affected by mild nonproliferative retinopathy without macular edema, with long-term current use of insulin ([facility]) URINALYSIS, COMPLETE W/REFLEX TO CULTURE Routine 10/20/2024 9:24 AM EDT Type 2 diabetes mellitus with both eyes affected by mild nonproliferative retinopathy without macular edema, with long-term current use of insulin ([facility]) HEMOGLOBIN GLYCOSYLATED A1C Routine 10/20/2024 9:11 AM EDT Type 2 diabetes mellitus with both eyes affected by mild nonproliferative retinopathy without macular edema, with long-term current use of insulin ([facility]) THYROID CASCADING REFLEX PANEL Routine 10/20/2024 9:11 AM EDT Type 2 diabetes mellitus with both eyes affected by mild nonproliferative retinopathy without macular edema, with long-term current use of insulin ([facility]) LIPID PANEL Routine 10/20/2024 9:11 AM EDT Type 2 diabetes mellitus with both eyes affected by mild nonproliferative retinopathy without macular edema, with long-term current use of insulin ([facility]) COMPREHENSIVE METABOLIC PANEL Routine 10/20/2024 9:11 AM EDT Type 2 diabetes mellitus with both eyes affected by mild nonproliferative retinopathy without macular edema, with long-term current use of insulin ([facility]) BLOOD COUNT COMPLETE AUTO&AUTO DIFRNTL WBC Routine 10/20/2024 9:11 AM EDT Type 2 diabetes mellitus with both eyes affected by mild nonproliferative retinopathy without macular edema, with long-term current use of insulin ([facility]) EYE EXAM 05/05/2023 3:00 AM EDT ANTIBODY HIV-1&HIV-2 SINGLE RESULT Routine 01/31/2015 8:45 AM EDT Screening examination for venereal disease TREPONEMA PALLIDUM ANTIBODIES Routine 01/31/2015 8:45 AM EDT Routine health maintenance HEPATITIS A,B,C PANEL Routine 01/31/2015 8:45 AM EDT Routine health maintenance Screening examination for venereal disease from Last 3 Months or Most Recently Relevant to Health Maintenance Results * PATHOLOGY SCANNED DOCUMENT (12/14/2024 3:00 AM EDT) 12/14/2024 3:00 AM EDT Ruel Franklin [facility] SCAN LAB Fi nal Result * (ABNORMAL) URINALYSIS, COMPLETE W/REFLEX TO CULTURE (10/20/2024 9:24 AM EDT) COLOR YELLOW YELLOW [facility] APPEARANCE CLEAR CLEAR [facility] SPECIFIC GRAVITY > OR = 1.045(A) 1.001 - 1.035 [employer] URINE PH 6.0 5.0 - 8.0 [facility] GLUCOSE 3+(A) NEGATIVE [facility] BILIRUBIN NEGATIVE NEGATIVE [facility] KETONES NEGATIVE NEGATIVE [facility] OCCULT BLOOD NEGATIVE NEGATIVE [facility] URINE PROTEIN TRACE(A) NEGATIVE [facility] NITRITE NEGATIVE NEGATIVE [facility] LEUKOCYTE ESTERASE NEGATIVE NEGATIVE [facility] URINE LEUKOCYTES NONE SEEN < OR = 5 [facility] RBC NONE SEEN < OR = 2 [facility] SQUAMOUS EPITHELIAL CELLS NONE SEEN < OR = 5 [facility] BACTERIA NONE SEEN NONE SEEN [facility] HYALINE CAST NONE SEEN NONE SEEN [facility] SEE NOTE See Below [employer] Comment: This urine was analyzed for the presence of WBC, RBC, bacteria, casts, and other formed elements. Only those elements seen were reported. Urine Urine specimen / Unknown 10/20/2024 9:24 AM EDT 10/20/2024 9:26 AM EDT Narrative [facility] [employer] - 10/21/2024 5:11 PM EDT SPLIT 10/20/2024 FROM [id number] DROPPED OFF. Ruel Franklin [facility] LAB - NO BLOOD AARON W Edited Result - Final [employer] [address] [address], [employer] [address] [address] * RFLX - REFLEXIVE URINE CULTURE (10/20/2024 9:24 AM EDT) REFLEXIVE URINE CULTURE See Below [id number] [facility] Comment:NO CULTURE INDICATED 10/20/2024 9:24 AM EDT 10/20/2024 9:26 AM EDT Narrative [employer] [facility] - 10/21/2024 5:11 PM EDT SPLIT 10/20/2024 FROM [id number] DROPPED OFF. Ruel Franklin [facility] - NO BLOOD DRA Peral Edited Result - Final [employer] [address] [address], [employer] [address] [address] * (ABNORMAL) MICROALBUMIN/CREATININE RATIO, URINE, RANDOM (10/20/2024 9:24 AM EDT) CREATININE, RANDOM URINE 120 20 - 320 mg/dL [employer] [facility] MICROALBUMIN 5.1 mg/dL [employer] [facility] Comment: Reference Range Not established MICROALBUMIN/CREA TININE RATIO, RANDOM URINE 43(H) <30 mg/g creat [employer] [facility] Comment: The ADA defines abnormalities in albumin excretion as follows: Albuminuria Category ?Result (mg/g creatinine) Normal to Mildly increased ?? <30 Moderately increased ? 30-299 Severely increased ? > OR = 300 The ADA recommends that at least two of three specimens collected within a 3-6 month period be abnormal before considering a patient to be within a diagnostic category. Urine Urine specimen / Unknown 10/20/2024 9:24 AM EDT 10/20/2024 9:26 AM EDT Narrative [employer] - 10/21/2024 5:11 PM EDT SPLIT 10/20/2024 FROM [id number] DROPPED OFF. [facility] AARON W Final Result Performing Organization Address [facility]/ZIP Co de Phone Number [employer] [address] [address], [employer] [address] [address] * THYROID CASCADING REFLEX PANEL (10/20/2024 9:11 AM EDT) [facility] TSH 1.61 0.40 - 4.50 mIU/L [employer] [facility] Blood Blood / Unknown 10/20/2024 9 :11 AM EDT 10/20/2024 9:12 AM EDT Narrative [employer] - 10/21/2024 5:29 AM EDT FASTING:NO PATIENT UNABLE TO VOID; ADVISED TO RETURN FOR COLLECTION. [facility]OD DRAW F inal Result Performing Organization Address [facility] Co de Phone Number [employer] [address] [place] [phone], [employer] [address] [phone] * BLOOD COUNT COMPLETE AUTO&AUTO DIFRNTL WBC (10/20/2024 9:11 AM EDT) [facility] WHITE BLOOD CELL COUNT 5.9 3.8 - 10.8 Thousand/ uL [employer] RED BLOOD CELL COUNT 5.56 4.20 - 5.80 Million/u L [employer] HEMOGLOBIN 15.2 13.2 - 17.1 g/dL [employer] HEMATOCRIT 47.5 38.5 - 50.0 % [employer] MCV 85.4 80.0 - 100.0 fL [employer] MCH 27.3 27.0 - 33.0 pg [facility] MCHC 32.0 32.0 - 36.0 g/dL [employer] Comment: For adults, a slight decrease in the calculated MCHC value (in the range of 30 to 32 g/dL) is most likely not clinically significant; however, it should be interpreted with caution in correlation with other red cell parameters and the patient's clinical condition. RDW 13.6 11.0 - 15.0 % [facility] PLATELET COUNT 223 140 - 400 Thousand/ uL [employer] MPV 10.6 7.5 - 12.5 fL [employer] ABSOLUTE NEUTROPHILS 4,059 1,500 - 7,800 cells/uL [employer] ABSOLUTE LYMPHOCYTES 1,345 850 - 3,900 cells/uL [employer] ABSOLUTE MONOCYTES 389 200 - 950 cells/uL [employer] ABSOLUTE EOSINOPHILS 89 15 - 500 cells/uL [employer] ABSOLUTE BASOPHILS 18 0 - 200 cells/uL [facility] NEUTROPHILS PCT 68.8 % QUES T [employer] LYMPHOCYTES 22.8 % [facility] [email or web address] MONOCYTES 6.6 % [facility] [employer] EOSINOPHILS 1.5 % [facility] [email or web address] BASOPHILS 0.3 % [employer] [facility] [employer] Blood Blood / Unknown 10/20/2024 9 :11 AM EDT 10/20/2024 9:12 AM EDT Narrative [facility] - 10/21/2024 5:29 AM EDT FASTING:NO PATIENT UNABLE TO VOID; ADVISED TO RETURN FOR COLLECTION. Ruel Franklin [facility] - BLOOD DRAW E dited Result - Final [employer] [address] [address], [employer] [address] [place] [phone] * (ABNORMAL) HEMOGLOBIN GLYCOSYLATED A1C (10/20/2024 9:11 AM EDT) HEMOGLOBIN A1C 6.8(H) <5.7 % of total Hgb [employer] Comment: For someone without known diabetes, a hemoglobin A1c value of 6.5% or greater indicates that they may have diabetes and this should be confirmed with a follow-up test. For someone with known diabetes, a value <7% indicates that their diabetes is well controlled and a value greater than or equal to 7% indicates suboptimal control. A1c targets should be individualized based on duration of diabetes, age, comorbid conditions, and other considerations. Currently, no consensus exists regarding use of hemoglobin A1c for diagnosis of diabetes for children. ?? Blood Blood / Unknown 10/20/2024 9 :11 AM EDT 10/20/2024 9:12 AM EDT Narrative [facility] - 10/21/2024 5:29 AM EDT FASTING:NO PATIENT UNABLE TO VOID; ADVISED TO RETURN FOR COLLECTION. Ruel Franklin [facility] - BLOOD DRAW F inal Result [employer] [address] [place] [phone], [employer] [address] [place] [phone] * (ABNORMAL) LIPID PANEL (10/20/2024 9:11 AM EDT) [facility] Signature CHOLESTEROL, TOTAL 177 <200 mg/dL [facility] HDL CHOLESTEROL 47 > OR = 40 mg/dL [employer] TRIGLYCERIDES 104 <150 mg/dL [facility] LDL-CHOLESTEROL 109(H) 99 mg/dL (calc) [facility] Comment: Reference range: <100 Desirable range <100 mg/dL for primary prevention; ?? <70 mg/dL for patients with CHD or diabetic patients with > or = 2 CHD risk factors. LDL-C is now calculated using the Tong-Fall calculation, which is a validated novel method providing better accuracy than the Friedewald equation in the estimation of LDL-C. Tong CHRISTIANSON et al. NELIDA. 2013;310(19): 6112-1579 (http://education.20lines/faq/HCQ471) CHOL/HDLC RATIO 3.8 <5.0 (calc) [facility] NON-HDL CHOLESTEROL 130(H) <130 mg/dL (calc) [facility] Comment: For patients with diabetes plus 1 major ASCVD risk factor, treating to a non-HDL-C goal of <100 mg/dL (LDL-C of <70 mg/dL) is considered a therapeutic option. Blood Blood / Unknown 10/20/2024 9 :11 AM EDT 10/20/2024 9:12 AM EDT Narrative [facility] - 10/21/2024 5:29 AM EDT FASTING:NO PATIENT UNABLE TO VOID; ADVISED TO RETURN FOR COLLECTION. Ruel Franklin [facility] - BLOOD DRAW F inal Result [employer] [facility] [address] [address], [employer] [facility] [address] [place] [address] * COMPREHENSIVE METABOLIC PANEL (10/20/2024 9:11 AM EDT) [facility] GLUCOSE 106 65 - 139 mg/dL [employer] [facility] Comment: ?Non-fasting reference interval UREA NITROGEN (BUN) 15 7 - 25 mg/dL [employer] [facility] CREATININE (blood) 0.79 0.70 - 1.30 mg/dL [employer] [facility] EGFR 108 > OR = 60 mL/min/1. 73m2 [employer] [facility] BUN/CREATININE RATIO SEE NOTE: [employer] [facility] Comment: ?? Not Reported: BUN and Creatinine are within ?? reference range. ? SODIUM 141 135 - 146 mmol/L [employer] [facility] POTASSIUM 4.2 3.5 - 5.3 mmol/L [employer] [facility] CHLORIDE 102 98 - 110 mmol/L [employer] [facility] CARBON DIOXIDE 31 20 - 32 mmol/L [employer] [facility] CALCIUM 8.9 8.6 - 10.3 mg/dL [employer] [facility] PROTEIN, TOTAL 6.8 6.1 - 8.1 g/dL [employer] [facility] ALBUMIN 4.5 3.6 - 5.1 g/dL [employer] [facility] GLOBULIN 2.3 1.9 - 3.7 g/dL (calc) [employer] [facility] ALBUMIN/GLOBULI N RATIO 2.0 1.0 - 2.5 (calc) [employer] [facility] BILIRUBIN, TOTAL 0.8 0.2 - 1.2 mg/dL [employer] [facility] ALKALINE PHOSPHATASE 53 35 - 144 U/L [employer] [facility] AST 19 10 - 35 U/L [employer] [facility] ALT 30 9 - 46 U/L [employer] [facility] Blood Blood / Unknown 10/20/2024 9 :11 AM EDT 10/20/2024 9:12 AM EDT Narrative [employer] - 10/21/2024 5:29 AM EDT FASTING:NO PATIENT UNABLE TO VOID; ADVISED TO RETURN FOR COLLECTION. [facility] - BLOOD DRAW E dited Result - Final Performing Organization Address City/[facility]/ZIP Co de Phone Number [facility] [address] [address], [facility] [address] [address] * EYE EXAM (05/05/2023 3:00 AM EDT) 05/05/2023 3:00 AM EDT Son [facility] OTHER Final Res ult * (ABNORMAL) HEPATITIS A,B,C PANEL (01/31/2015 8:45 AM EDT) HEPATITIS B SURFACE ANTIBODY POSITIVE(A) NEGATIVE [facility] HEPATITIS B SURFACE ANTIGEN NEGATIVE NEGATIVE [facility] HEPATITIS C VIRUS DIAGNOSTIC NEGATIVE NEGATIVE [facility] HEPATITIS A ANTIBODY TOTAL POSITIVE(A) NEGATIVE [facility] HEPATITIS B CORE ANTIBODY NEGATIVE NEGATIVE [facility] Blood specimen (specimen) Blood / Unknown 01/31/2015 8:45 AM EDT 01/31/2015 8:[address] [facility] - 01/31/2015 12:35 PM EDT QR Wild [address] [place] [address] PT ID [id number] ORD# [id number] [facility] - BLOOD DRAW Edited Resul t - Final Performing Organization Address City/[facility]/ZIP Co de Phone Number [address] [address], * TREPONEMA PALLIDUM ANTIBODIES (01/31/2015 8:45 AM EDT) TREPONEMAL AB NEGATIVE NEGATIVE [facility] 01/31/2015 8:45 AM EDT 01/31/2015 8:[address] [facility] - 01/31/2015 1:11 PM EDT QR [facility] [address] [place] [id number] PT ID [id number] ORD# [id number] [facility] - BLOOD DRAW Final Result Performing Organization Address City/[facility]/ZIP Co de Phone Number [facility] [address] [place] [address], [place] [phone] * HIV-1 & HIV-2 ANTIBODIES (01/31/2015 8:45 AM EDT) [facility] HIV 1 AND 2 ANTIBODY SCREEN NEGATIVE NEGATIVE [facility] Blood specimen (specimen) Blood / Unknown 01/31/2015 8:45 AM EDT 01/31/2015 8:49 AM EDT [facility] - 01/31/2015 9:26 PM EDT QR Wild [address] [place] [id number] PT ID [id number] ORD# [id number] [facility] - BLOOD DRAW Final Result Performing Organization Address City/[facility]/ZIP Co de Phone Number [address] [address], [place] [phone] from Last 3 Months or Most Recently Relevant to Health Maintenance Insurance [employer] Member Subscriber Plan / Payer (Ef fective 2024-Present) Name:Cale Durant Relation to Subscriber:Self Name:Cale Durant Payer ID:[id number] Type:Indemnity Address: [address] [address] Care Teams Edge Cutter Relationship Specialty Start Date End Date Ruel Franklin FNP [address] [place] [address] PCP - General Family Medicine, CHARITY FUNDRAISER 07/07/20
--- NOTE | 2024-12-18 23:50 | ED.CHESTPAIN ---
HPI - Chest Pain General Chief Complaint: Chest Pain Stated Complaint: high blood pressure, doesnt feel well Time Seen by Provider: 12/18/24 23:46 Source: patient Mode of arrival: ambulatory Limitations: no limitations History of Present Illness ED Provider: HPI narrative: Patient's history of hypertension diabetes missed his valsartan earlier today just prior to arrival felt funny with a slight chest discomfort anxious checked his blood pressure was 198/100 took his medications on arrival patient's blood pressure was 181/95 patient denies any history of anxiety no recent stress Related Data Previous Rx's ?Medication ?Instructions ?Recorded omeprazole magnesium 10 mg oral 20 mg PO DAILY #30 ea 09/05/22 suspension,delayed release (Prilosec) ondansetron HCl 4 mg tablet 4 mg PO Q8H PRN nausea and 09/05/22 vomiting 3 days #12 tabs Allergies Allergy/AdvReac Type Severity Reaction Status Date / Time No Known Allergies Allergy Verified 12/18/24 22:58 Review of Systems Review of Systems: Yes all other systems are reviewed and are negative [facility] Social History Social History Alcohol intake: never Use of substances other than those prescribed or required for medical reasons: No Advance Directives: No Advance Directives Information Provided: Yes Do you have a plan to hurt others: No Plan Physical Exam Vital Signs: Vital Signs: Last Vital Signs Temp 98.1 F 12/19/24 00:56 Pulse 76 12/19/24 00:56 Resp 16 12/19/24 00:56 BP 124/78 12/19/24 00:56 Pulse Ox 97 12/19/24 00:56 O2 Del Method Room Air 12/19/24 00:56 BMI result Body Mass Index 31.8 Appearance: Alert. Oriented X3. No acute distress. Eyes: PERRLA, No Nystagmus ENT: Pharynx normal. Oral Mucosa moist Neck: Normal inspection. Neck supple. CVS: Normal heart rate and rhythm. Pulses normal. Respiratory: No respiratory distress. Equal air entry bilateral, no wheezing/rales/rhonchi Abdomen: Soft and nontender. Bowel sounds are present, no mass palpable, no CVA tenderness Skin: Skin warm and dry. Normal skin color. Normal skin turgor. Extremities: No lower extremity edema. No calf tenderness Neuro: Oriented X 3. No motor deficit. No sensory deficit.No cerebellar signs , cranial nerves II-XII intact Medical Decision Making Medical Decision Making [facility] Narrative: Patient's nonspecific chest discomfort, anxiety symptoms with elevated blood pressure initial cardiac enzymes and cardiogram was normal will repeat enzymes to rule out ACS Two sets of cardiac enzymes negative for acute blood pressure improved during stay in the ER EKG without ischemic changes likely patient's symptoms with transient hypotension anxiety advised patient to follow up with his PCP patient denies any symptoms at this time Differential Diagnosis Differential Diagnoses: The differential diagnosis associated with the presentation includes Anxiety/ACS/musculoskeletal Lab Data [facility] Lab Attestation statement: I reviewed the patient's lab results. 12/18/24 23:08 12/18/24 23:08 Labs: Lab Results 12/18/24 12/19/24 Range/Units 23:08 01:03 WBC 5.8 (4.8-10.8) X10*3/uL RBC 5.37 (4.60-5.80) X10*6/uL Hgb 15.0 (14.0-18.0) g/dl Hct 45.7 (42.0-52.0) % MCV 85.1 (80.0-98.0) fL MCH 27.9 (27.0-33.0) pg MCHC 32.8 (31.0-36.0) g/dl RDW 12.4 (11.0-16.0) % Plt Count 224 D (160-400) X10*3/uL MPV 9.7 (9.4-12.4) fL Immature Gran % (Auto) 0.3 (0.0-0.4) % Neut % (Auto) 64.9 (45-73) % Lymph % (Auto) 25.0 (20-40) % [place] % (Auto) 7.1 (2-11) % Eos % (Auto) 2.4 (0-4) % Baso % (Auto) 0.3 (0-2) % Lymph # (Auto) 1.4 (1.2-4.9) X10*3/uL [place] # (Auto) 0.4 (0.1-1.2) X10*3/uL Eos # (Auto) 0.1 (0.0-0.4) X10*3/uL Baso # (Auto) 0.0 (0.0-0.2) X10*3/uL Abs Immat Gran (auto) 0.02 (0.00-0.03) X10*3/uL Absolute Neuts (auto) 3.7 (2.0-8.3) x10*3/uL Absolute Nucleated RBC 0.000 (0.0-0.012) X10*3/uL Nucleated RBC % (auto) 0.0 (0.0-0.2) /100WBC Sodium 143 (135-145) mmol/L Potassium 3.7 (3.3-5.1) mmol/L Chloride 105 (96-108) mmol/L Carbon Dioxide 28 (22-29) mmol/L Anion Gap 14 (12-20) BUN 13 (9-16) mg/dL Creatinine 0.93 (0.5-1.4) mg/dL Estim Creat Clear Calc 106.2 Estimated GFR > 60 Random Glucose 128 H (60-115) mg/dL Calcium 9.3 (8.4-10.2) mg/dL Total Bilirubin 0.6 (0.0-1.0) mg/dL AST 30 (5-37) U/L ALT 43 H (0-40) U/L Alkaline Phosphatase 60 (39-117) U/L Troponin I High Sens < 2.7 < 2.7 (<3.5-35.0) ng/L Total Protein 7.0 (6.5-8.0) g/dL Albumin 4.3 (3.5-5.0) g/dL Independent Interpretation I performed an independent interpretation of an: EKG Interpretation: Normal sinus rhythm heart rate 87 beats per minute normal intervals normal axis no acute ST-T no acute ischemia Radiology Impression Discussion of test interpretation with radiology: I have reviewed the radiologist's reading. Radiologist Impression: NAD Discharge Plan Discharge Clinical Impression: Hypertension, Anxiety Patient Disposition: Home, Self-Care Instructions: Chronic Hypertension (DC), Anxiety (ED) Additional Instructions: Take your blood pressure medication on time And follow up with your PCP Prescriptions: No Action Prilosec 10 mg susp,delayed release for recon 20 mg PO DAILY Qty: 30 0RF ondansetron HCl 4 mg tablet 4 mg PO Q8H PRN (Reason: nausea and vomiting) 3 Days Qty: 12 0RF Print Language: Belarusian
[2024-12-19 00:56] VITALS: BP 124/78; PULSE 76; RESP 16; TEMP 36.7; O2SAT 97
--- NOTE | 2024-12-19 00:58 | PC.NURSE ---
pt states he forgot to take his bp med this morning. now resting comfortably on stretcher, denies chest pain at the moment, BP is 124/78.
[2024-12-19 01:31] LABS: Troponin-I High Sensitivity < 2.7 ng/L (<3.5-35.0)
[2024-12-19 01:51] VITALS: BP 124/78; PULSE 76; RESP 16; TEMP 36.7; O2SAT 97
== END 2024-12-19 01:52 | disposition home or self-care (01) ==
PROVIDERS: Emergency Provider Internal Medicine; PCP Nurse Practitioner Family
DX: R07.89 Other chest pain (principal); F41.9 Anxiety disorder, unspecified; R03.0 Elevated blood-pressure reading, without diagnosis of hypertension
CPT/HCPCS: 36415; 71045; 80053; 84484; 85025; 93005; 99283; 99284

== ENCOUNTER → 2024-12-18 22:59 | Outpatient (BNV) | payer OTHER, SELFPAY | PROVIDERS: Emergency Provider Internal Medicine; PCP Nurse Practitioner Family; Visit Provider Internal Medicine Cardiovascular Disease | DX: R07.9 Chest pain, unspecified (principal); R94.8 Abnormal results of function studies of other organs and systems | CPT/HCPCS: 93010 ==

== ENCOUNTER → 2024-12-18 23:50 | Outpatient (BNV) | payer OTHER, SELFPAY | PROVIDERS: Emergency Provider Internal Medicine; PCP Nurse Practitioner Family; Visit Provider Radiology Diagnostic Radiology | DX: R07.9 Chest pain, unspecified (principal) | CPT/HCPCS: 71045 ==

== ENCOUNTER 2025-04-14 00:28 | Emergency (ER) | payer OTHER, SELFPAY ==
[2025-04-14] VITALS (7 sets, daily range): BP systolic 122–132; BP diastolic 81–95; PULSE 87–132; RESP 16–19; TEMP 36.2–36.6; O2SAT 97–98; BMI 32.2
--- NOTE | 2025-04-14 | ECG_ITS ---
Test Reason : RYTHUM CHECK Blood Pressure : */* mmHG Vent. Rate : 85 BPM Atrial Rate : 85 BPM P-R Int : 174 ms QRS Dur : 80 ms QT Int : 348 ms P-R-T Axes : 15 49 28 degrees QTcB Int : 414 ms Normal sinus rhythm Nonspecific T wave abnormality Abnormal ECG When compared with ECG of 14-Apr-2025 00:41, Sinus rhythm has replaced Junctional rhythm Nonspecific T wave abnormality now evident in Inferior leads Referred By: Evonne Suh Electronically Signed By: Ricky Ochoa
--- NOTE | ~2025-04-14 | XR_ITS ---
CLINICAL HISTORY: Bilateral chest pain, shortness of breath Chest X-ray, 1 View COMPARISON: CR - XR CHEST 1V - 12/18/24 23:43 EDT FINDINGS: No consolidation. No pleural effusion. No pneumothorax. No cardiomegaly. No acute fracture. IMPRESSION: No acute findings. This document has been electronically signed by: Sherman Sotelo MD on 04/14/2025 03:36:17
--- NOTE | 2025-04-14 00:31 | ECG_ITS ---
Test Reason : TACHY Blood Pressure : */* mmHG Vent. Rate : 126 BPM Atrial Rate : * BPM P-R Int : * ms QRS Dur : 72 ms QT Int : 294 ms P-R-T Axes : * 63 95 degrees QTcB Int : 425 ms Accelerated Junctional rhythm Nonspecific ST and T wave abnormality Abnormal ECG When compared with ECG of 18-Dec-2024 23:01, Junctional rhythm has replaced Sinus rhythm Non-specific change in ST segment in Inferior leads ST now depressed in Anterolateral leads Nonspecific T wave abnormality no longer evident in Inferior leads Referred By: Generic ED Physician Electronically Signed By: Ricky Ochoa
[2025-04-14 00:49] LABS: MANUAL DIFF FLAG NO
[2025-04-14 00:59] LABS: Hematocrit 51.8 % (42.0-52.0); Hemoglobin 16.9 g/dl (14.0-18.0); Imm Gran Abs Auto 0.05 X10*3/uL (0.00-0.03); Imm Gran Pct Auto 0.8 % (0.0-0.4); Lymphocytes Absolute Auto 1.6 X10*3/uL (1.2-4.9); Mean Corpuscular HGB Conc 32.6 g/dl (31.0-36.0); Mean Corpuscular Hemoglobin 27.3 pg (27.0-33.0); Mean Corpuscular Volume 83.5 fL (80.0-98.0); NRBC Abs Auto 0.000 X10*3/uL (0.0-0.012); NRBC Pct Auto 0.0 /100WBC (0.0-0.2); Platelet Count 246 X10*3/uL (160-400); Red Blood Count 6.20 X10*6/uL (4.60-5.80); White Blood Count 6.5 X10*3/uL (4.8-10.8)
--- NOTE | 2025-04-14 00:59 | ED_ITS ---
HPI - Chest Pain General Chief Complaint: Chest Pain Stated Complaint: chest pressure / SOB Time Seen by Provider: 04/14/25 00:46 Source: patient Mode of arrival: ambulatory Limitations: no limitations History of Present Illness ED Provider: Dr. Evonne Suh HPI narrative: Patient comes to the emergency room complaining of shortness of breath, chest pressure, tachycardia that started approximately 6 hours ago. Patient denies any syncopal episodes, denies any cardiac history or asthma. Patient is speaking full sentences, states that he is feels that he can not get a full breath of air. Patient states that he has chest pressure that started about 6 hours ago, intermittent, bottle for the last couple of hours, it has been constant. Patient states it is not pain, it is mostly the pressure that he feels. Denies abdominal pain. Related Data Previous Rx's ?Medication ?Instructions ?Recorded omeprazole magnesium 10 mg oral 20 mg PO DAILY #30 ea 09/05/22 suspension,delayed release (Prilosec) ondansetron HCl 4 mg tablet 4 mg PO Q8H PRN nausea and 09/05/22 vomiting 3 days #12 tabs Allergies Allergy/AdvReac Type Severity Reaction Status Date / Time tramadol Allergy Numbness Verified 04/14/25 00:34 Review of Systems 2 Review of Systems: Constitutional : No Weight loss, No Fever, No Chills, No Night Sweats, No Fatigue, No Malaise ENT/Mouth : No Hearing loss, No Ear Pain, No Nasal Congestion, No Sinus Pain, No Hoarseness, No sore throat, No Rhinorrhea, No Swallowing Difficulty Eyes: No Eye Pain, No Swelling, No Redness, No Foreign Body, No Discharge, No Vision Changes Cardiovascular : Complaining of chest pressure without Chest Pain, complaining of mild shortness of breath, no orthopnea, complaining of palpitations Respiratory : No Cough, No Sputum, No Wheezing, No Smoke Exposure, complaining of Dyspnea Gastrointestinal : No Nausea, No Vomiting, No Diarrhea, No Constipation, No abdominal Pain, No Hematochezia, No Melena Genitourinary : no irregular bleeding, No Dysuria, No Urinary Frequency, No Hematuria, No Urinary Incontinence, No Urgency, No Flank Pain, No Urinary Flow Changes, No Hesitancy Musculoskeletal : No joint pain, No Myalgias, No Joint Swelling Skin : No Skin Lesions, No rash Neuro : No Weakness, No Numbness, No Paresthesias, No Loss of Consciousness, No Dizziness, No Headache Psych : No Anxiety/Panic, No Depression, No SI/HI/AH/VH, No Social Issues, Heme/Lymph: No Bruising, No Bleeding,No Lymphadenopathy Endocrine : No Polyuria, No Polydipsia, No Temperature Intolerance [facility] Past Medical History Medical History (Updated 04/14/25 @ 06:06 by Evonne Suh MD) Hypertension Type 2 diabetes mellitus Social History Social History Unable to assess alcohol history related to: Unknown Alcohol intake: never Smoked in Last 30 Days: No Use of substances other than those prescribed or required for medical reasons: No Advance Directives: No Do you have a plan to hurt others: No Plan Physical Exam 2 Exam: Exam: Appearance: Alert. Oriented X3. No acute distress. Eyes: Pupils equal, round and reactive to light. ENT: Pharynx normal. Neck: Normal inspection. Neck supple. No lymph nodes noted. No crepitus CVS: Normal heart rate and rhythm. Pulses normal. Normal S1 and S2, patient reports reproducible chest pain to palpation bilaterally. Respiratory: No respiratory distress. Breath sounds normal. No Wheezing. No rales Abdomen: Soft and nontender. No rigidity. No distention. Skin: Skin warm and dry. Normal skin color. Normal skin turgor. Extremities: No lower extremity edema. No Lacerations. No Rash Neuro: Oriented X 3. No motor deficit. No sensory deficit. Moving all extremities. No slurred speech. CN 2 through 12 grossly intact Psych: calm, cooperative, normal affect Vital Signs: Vital Signs: Last Vital Signs Temp 97.2 F 04/14/25 00:31 Pulse 87 04/14/25 04:25 Resp 16 04/14/25 04:25 BP 122/81 04/14/25 04:25 Pulse Ox 97 04/14/25 04:25 O2 Del Method Room Air 04/14/25 04:25 BMI result Body Mass Index 32.2 Course Course Course Narrative: Patient comes in complaining of chest pressure without significant chest pain for the last 6 hours, palpitations. Patient denies alcohol or drug abuse. Denies any previous cardiac history, denies history of blood clots. Medications Administered Discontinued Medications Generic Name Dose Route Start Last Admin Trade Name Freq PRN Reason Stop Dose Admin Aspirin 325 mg 04/14/25 00:55 04/14/25 01:12 Aspirin Enteric Coated 325 Mg Tablet. PO 04/14/25 00:56 325 mg ONCE ONE Administration Atorvastatin Calcium 80 mg 04/14/25 00:55 04/14/25 01:12 Atorvastatin Calcium 80 Mg Tablet PO 04/14/25 00:56 80 mg ONCE ONE Administration Metoprolol Tartrate 2.5 mg 04/14/25 00:55 04/14/25 01:11 Metoprolol Tartrate 5 Mg/5 Ml Vial IVPUSH 04/14/25 00:56 2.5 mg ONCE ONE Administration Protocol Morphine Sulfate 1 mg 04/14/25 00:55 04/14/25 01:07 Morphine Sulfate 2 Mg/Ml Cartridge IVPUSH 04/14/25 00:56 1 mg ONCE ONE Administration Protocol Medical Decision Making Medical Decision Making [facility] Narrative: My interpretation of EKG: Axillary junctional rhythm, heart rate 126, AST segment depressions about 2 mm in leads V2 V3 V4 V5 Patient initially complaining of chest pressure without pain, palpitations. As we were waiting for the labs: Given the patient's EKG changes, patient was given p.o. aspirin, metoprolol, atorvastatin However, patient's troponin came back within normal limits. Repeated x2, within normal limits. After the above-mentioned medication, patient states that he feels completely asymptomatic, no chest pain or shortness of breath. No palpitations. EKG 2: Normal sinus rhythm, heart rate 85, no ST segment depression or elevation, no T-wave inversion, QTC 440 I discussed with the patient that he would benefit from a Holter monitor given his rhythm, symptoms. Patient agrees with plan. Patient will follow-up with his primary care physician. Differential Diagnosis Differential Diagnoses: The differential diagnosis associated with the presentation includes (Atrial fibrillation, atrial flutter, SVT, sinus tachycardia) Admission/Observation Consideration of admission/observation: Escalation of care including admission/observation considered (Given patient's symptoms and EKG changes, observation/admission was considered) Lab Data [facility] Lab Attestation statement: I reviewed the patient's lab results. 04/14/25 00:44 04/14/25 00:44 Labs: Lab Results 09/05/25 09/05/25 09/05/25 Range/Units 00:44 01:15 05:19 WBC 6.5 (4.8-10.8) X10*3/uL RBC 6.20 H (4.60-5.80) X10*6/uL Hgb 16.9 (14.0-18.0) g/dl Hct 51.8 (42.0-52.0) % MCV 83.5 (80.0-98.0) fL MCH 27.3 (27.0-33.0) pg MCHC 32.6 (31.0-36.0) g/dl RDW 13.1 (11.0-16.0) % Plt Count 246 (160-400) X10*3/uL MPV 10.2 (9.4-12.4) fL Immature Gran % (Auto) 0.8 H (0.0-0.4) % Neut % (Auto) 63.2 (45-73) % Lymph % (Auto) 24.6 (20-40) % [place] % (Auto) 9.4 (2-11) % Eos % (Auto) 1.7 (0-4) % Baso % (Auto) 0.3 (0-2) % Lymph # (Auto) 1.6 (1.2-4.9) X10*3/uL [place] # (Auto) 0.6 (0.1-1.2) X10*3/uL Eos # (Auto) 0.1 (0.0-0.4) X10*3/uL Baso # (Auto) 0.0 (0.0-0.2) X10*3/uL Abs Immat Gran (auto) 0.05 H (0.00-0.03) X10*3/uL Absolute Neuts (auto) 4.1 (2.0-8.3) x10*3/uL Absolute Nucleated RBC 0.000 (0.0-0.012) X10*3/uL Nucleated RBC % (auto) 0.0 (0.0-0.2) /100WBC PT 11.6 (10.9-12.4) SEC INR 1.0 (0.9-1.1) D-Dimer High Sensitivty < 150 NG/ML Sodium 144 (135-145) mmol/L Potassium 4.0 (3.3-5.1) mmol/L Chloride 103 (96-108) mmol/L Carbon Dioxide 28 (22-29) mmol/L Anion Gap 17 (12-20) BUN 10 (9-16) mg/dL Creatinine 0.96 (0.5-1.4) mg/dL Estim Creat Clear Calc 103.5 Estimated GFR > 60 Random Glucose 208 H (60-115) mg/dL Calcium 9.1 (8.4-10.2) mg/dL Total Bilirubin 0.5 (0.0-1.0) mg/dL AST 34 (5-37) U/L ALT 54 H (0-40) U/L Alkaline Phosphatase 73 (39-117) U/L Troponin I High Sens 22.4 D 30.6 (<3.5-35.0) ng/L B-Natriuretic Peptide 19 (<100) pg/mL Total Protein 7.9 (6.5-8.0) g/dL Albumin 4.7 (3.5-5.0) g/dL Independent Interpretation I performed an independent interpretation of an: Plain X-Ray Radiology Impression Discussion of test interpretation with radiology: I have reviewed the radiologist's reading. Radiologist Impression: No consolidation. No pleural effusion. No pneumothorax. No cardiomegaly. No acute fracture. Independent Historian Clinical information obtained from an independent historian. History obtained from or confirmed by: Spouse External Record Review External record reviewed: Other Patient has previously been here for anxiety, slight chest discomfort, workup was negative Prescription Management I considered prescription management with: Other In the emergency room, patient was given a dose of IV metoprolol, I considered prescribing p.o. metoprolol. However, we do not have a clear diagnosis, patient instructed to follow-up with his PCP and overlock collar setter, patient may be a good candidate for a Holter monitor evaluation Critical Care Time Critical Care Time Critical Care Time: Yes Total Critical Care Time: 50 Attestation: I have personally provided critical care time. Time includes review of lab data, radiology results, discussion with consultants, and monitoring for potential decompensation. Intervention performed as documented. Discharge Plan Discharge Clinical Impression: Palpitations Patient Disposition: Home, Self-Care Instructions: Heart Palpitations (ED) Additional Instructions: Please follow-up with your primary care physician tomorrow. If you have any worsening or new symptoms, please return to the emergency room or call 911 Prescriptions: No Action Prilosec 10 mg susp,delayed release for recon 20 mg PO DAILY Qty: 30 0RF ondansetron HCl 4 mg tablet 4 mg PO Q8H PRN (Reason: nausea and vomiting) 3 Days Qty: 12 0RF Stand Alone Forms: Work/School Release Print Language: Kinyarwanda
[2025-04-14 01:03] LABS: Alanine Aminotransferase 54 U/L (0-40); Albumin Level 4.7 g/dL (3.5-5.0); Alkaline Phosphatase 73 U/L (39-117); Anion Gap 17 (12-20); Aspartate Amino Transferase 34 U/L (5-37); Blood Urea Nitrogen 10 mg/dL (9-16); Calcium 9.1 mg/dL (8.4-10.2); Carbon Dioxide 28 mmol/L (22-29); Chloride 103 mmol/L (96-108); Creatinine Clr Calc Pharmacy 103.5; Estimated Glomerular Filt Rate > 60; Potassium 4.0 mmol/L (3.3-5.1); Sodium 144 mmol/L (135-145); Total Protein 7.9 g/dL (6.5-8.0)
[2025-04-14 01:08] LABS: Troponin-I High Sensitivity 22.4 ng/L (<3.5-35.0)
[2025-04-14] MEDS: Aspirin Enteric Coated 325 MG TABLET.DR PO (01:12)
--- OUTSIDE RECORDS SUMMARY | 2025-04-14 01:20 | XMS_ITS | Clinical Summary ---
Author Organization [facility] Address [id number] [place] [phone] Care Team Providers Care Cost Specialist Name Role Phone Ruel Franklin NP Primary Care Provider [phone] Surgical History Surgery Date Site/Laterality Comments VASECTOMY PROCEDURE: IN VASECTOMY UNI/BI SPX W/POSTOP SEMEN EXAMS Medical History Medical History Date Comments Type 2 diabetes mellitus (CM S/HCC V24, CMS/HCC V28) DX:Type 2 diabetes mellitus (HCC) Hx of insulin dependent diab etes mellitus DX:Hx of insulin dependent d iabetes mellitus Family History Medical History Relation Name Comments Heart attack Maternal Grandmother Diabetes Mother Mellitus Hypertension Mother Relation Name Status Comments Maternal Grandmother Mother Social History Tobacco Use Types Packs/Day Years Used Date Smoking Tobacco: Never Alcohol Use Standard Drinks/Week Comments Never 0 (1 standard drink = 0.6 oz pur e alcohol) Sex and Gender Information Value Date Recorded Sex Assigned at Not on file Legal Sex Male 9:02 AM EST Gender Identity Not on file Sexual Orientation Not on file Obstetrics History Plan of Treatment Health Maintenance Due Date Last Done Comments Diabetes: Annual Foot Exam 1984 Diabetes: Annual Retina Eye Exam 1984 DTaP,Tdap,and Td Vaccines (1 - Tdap) 1993 Hepatitis B Vaccines (1 of 3 - 19+ 3-dose series) 1993 Colorectal Cancer Screening: Colonoscopy 07/13/2022 Hepatitis C Screening 07/13/2022 Social Influencers of Health Screening 07/13/2022 Depression Screening 08/10/2024 Pneumococcal Vaccine: 50+ Years (1 of 1 - PCV) 2024 Zoster Vaccines (1 of 2) 2024 COVID-19 Vaccine (1 - 2023- season) 2025 Influenza Vaccine (#1) 2025 Diabetes: Blood Sugar Control Test (HGBA1C) 04/22/2025 10/20/2024, 07/21/2024 Diabetes: Annual Urine Albumin-Creatinine Ratio (uACR) 10/20/2025 10/20/2024, 08/15/2020, 07/05/2018 Diabetes: Annual GFR (Glomerular Filtration Rate) 10/20/2025 10/20/2024 Hypertension/CHF/CAD Annual BMP Blood Test 10/20/2025 10/20/2024 Cholesterol Screening (Lipid Panel) 10/20/2029 10/20/2024, 10/20/2024, 12/01/2023, Additional history exists HIV Screening Completed 01/31/2015 HIB Vaccines Aged Out No longer eligi ble based on patient's age to complete this topic HPV Vaccines Aged Out No longer eligi ble based on patient's age to complete this topic Hepatitis A Vaccines Aged Out No long er eligible based on patient's age to complete this topic IPV Vaccines Aged Out No longer eligi ble based on patient's age to complete this topic MMR Vaccines Aged Out No longer eligi ble based on patient's age to complete this topic Meningococcal ACWY Vaccine Aged Out N o longer eligible based on patient's age to complete this topic Meningococcal B Vaccine Aged Out No l onger eligible based on patient's age to complete this topic RSV Immunization Patients Under 20 months Aged Out No longer eligible based on patient's age to complete this topic Varicella Vaccines Aged Out No longer eligible based on patient's age to complete this topic Care Teams Cost Specialist Relationship Specialty Start Date End Date Ruel Franklin NP PCP - General 10/22/23
--- OUTSIDE RECORDS SUMMARY | 2025-04-14 01:20 | XMS_ITS | Clinical Summary ---
Author Organization [facility] Address [address] [place] [address] Care Team Providers Care Bank Worker Name Role Phone Ruel Franklin Primary Care Provider [phone] Source Comments PLEASE NOTE, if this patient is a minor, it may be UNLAWFUL to discuss sensitive information that is contained in these records (such as FAMILY PLANNING, MENTAL HEALTH or SUBSTANCE ABUSE) with the minor patient's parent or other person without the patient's specific authorization.[facility] Allergies Active Allergy Reactions Criticality Noted Date Comments Tramadol Other (See Comments) 10/01/2021 Chest pain Medications blood-glucose meter (FREESTYLE LITE METER) monitoring kit as needed for blood glucose monitoring Use to check BG daily. 1 Each 024 Active pen needle, diabetic 31 gauge x 5/16 ndleIndications:Ty pe 2 diabetes mellitus with hyperglycemia, with long-term current use of insulin ([facility]) Use to inject insulin 4x/day. UAD. 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, with long-term current use of insulin (CMS & HHS-HCC) Inject 45 Units into the skin nightly at bedtime DXE11.3293 Decreased 18 mL 1 025 Active NOVOLOG FLEXPEN U-100 INSULIN 100 unit/mL (3 mL)Indications: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, with long-term current use of insulin ([facility]) INJECT 6-10 UNITS SKIN THREE TIMES DAILY BEFORE meals INJECT EIGHT UNITS if eating a nigger meal max 24 UNITS DAILY 15 mL 1 [address] tabletIndications: History of [place] (myocardial infarction) Take 1 Tablet by mouth once daily 90 Tablet 3 025 Active rosuvastatin (CRESTOR) 20 mg tablet Take 1 Tablet by mouth nightly at bedtime 90 Tablet 3 025 Active blood sugar diagnostic (FREESTYLE LITE STRIPS) stripsIndications: Type 2 diabetes mellitus with both eyes affected by mild nonproliferative retinopathy without macular edema, with long-term current use of insulin ([facility]) Test BG BID UD DXE11.3293 Freestyle Lite Test Strips Pls Deliver. 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 200 Each 025 Active valsartan (DIOVAN) 160 mg tabletIndications: Essential hypertension Take 1 Tablet by mouth once daily. 90 Tablet 1 025 Active OZEMPIC 2 mg/dose (8 mg/3 mL) pen injector INJECT 2mg SUBCUTANEOUSLY ONCE a WEEK 3 mL 1 025 Active OZEMPIC 2 mg/dose (8 mg/3 mL) pen injector INJECT 2mg SUBCUTANEOUSLY ONCE a WEEK 3 mL 1 025 03/15 Discontinued Active Problems Problem Noted Date Diagnosed Date History of colon polyps 10/20/2024 Overview (12/16/2024): Two tubular adenomas at [facility] 2023- needs repeat in 5 years 01/20/2024 - Rectum, x 2 polypectomy - Two tubular adenomas Type 2 diabetes mellitus wit h hyperglycemia, with long-term current use of insulin ([facility]) 10/20/2024 Class 1 obesity due to exces s calories with serious comorbidity and body mass index (BMI) of 31.0 to 31.9 in adult 12/01/2023 History of [place] (myocardial infarction) 08/20/2021 Overview (08/20/2021): Infarct at [facility] 08/2021 Microalbuminuria 04/04/2015 Overview (06/06/2015): rec note from renal dated 03/29/15, saw Demetrio Renteria, #[phone]; no chg in plan expect for pt [...] edema, with long-term current use of insulin ([facility]) 09/27/2014 Overview (10/20/2024): October 2024- pt decided to get second opinion regarding diabetic cataract surgery November 2023- reports right dm cataract, will do surgery after getting back from [place] (Eye [facility]) No retinopathy Xavi Dhaliwal MD eye exam February Outgoing call: [address], [place], [place] [id number] I called and spoke to Yanira at the office to get his report for visit on 02/05/2015/jamila [facility] # [phone] 08/02/09 no retinaopathy a1c in 2006 112.4 dec to 6.7 in 3 months! 6.5 in Aug [facility]: has a cataract in right eye Lab Results Component Value Date HGBA1C 11.8* 01/31/2015 Lab Results Component Value Date CREATININE 0.89 01/31/2015 URCREATININE 235 01/31/2015 EGFR > 60 01/31/2015 Lab Results Component Value Date GLUCOSE 220* 01/31/2015 EAG 292 01/31/2015 micro albumin 100.8 01/31/15 Refer to Vicky 02/01/15 Elevated LFTs 09/27/2014 Overview (02/21/2015): In chart 2008 hep panel neg Lab Results Component Value [...] rehab- worked with Tawny espinoza/ NAILA Powers Pt was seen on 03/10/16 i requested for notes to be faxed Previous Messages ----- Message ----- From: NAILA Yin Sent: 03/05/2016 7:02 AM To: Dottie Felix Please look into speech ref 'FAXED Thank you Shira RLL pneumonia 10/03/2015 07/31/2016 Overview (10/03/2015): txwith z pack resolved Cough 08/13/2015 07/31/2016 Overview (08/13/2015): Saw Roger-in SDC, tessalon and pro air rxed Vasectomy planned 07/26/2015 07/06/2016 Overview (08/29/2015): Saw [facility] 07/13/15 Norman nelson MD #[phone], sched in near future Done aug 24 Diabetic eye exam 05/16/15 No retinopathy 06/01/2015 01/26/2019 Overview (06/01/2015): F/u one year [facility] #[phone] Generalized abdominal pain 09/27/2014 1 10/01/2015 Overview (09/27/2014): 02/28/10 request francheska spleen u/s Onychomycosis 09/27/2014 12/01/2023 Overview (07/06/2016): sagrario 05/13/16- 1. dx onychomycosis right great toe-2. tinea pedis- rx econazole and 3. wart- left ring finger- plan liq nitro r/t 1 month Foot doc eval Dr. Espinoza #[phone] Rib pain on left side 09/27/20142015 Overview (09/27/2014): 09/03/07 normal film History of EKG 09/27/2014 07/31/2016 Overview (09/27/2014): 01/25/07 NSR with early repolarization Hepatitis B antibody positiv e: + for hep A antibody also 02/200909/27/2014 07/31/2016 Family History Medical History Relation Name Comments [...] Sign Reading Time Taken Comments Blood Pressure 120/88 01/03/2025 9:44 AM EDT Pulse 70 01/03/2025 9:44 AM EDT Temperature 36.7 C (98.1 F) 10/20/2024 8:55 AM EDT Respiratory Rate 16 01/03/2025 9:44 AM EDT Oxygen Saturation 99% 01/03/2025 9:44 AM EDT Inhaled Oxygen Concentration - - Weight 95.3 kg (210 lb) 01/03/2025 9:44 AM EDT Height 172.7 cm (5' 8 ) 01/03/2025 9:44 AM EDT Body Mass Index 31.93 01/03/2025 9:44 AM EDT Plan of Treatment Upcoming Encounters Date Type Department Care Team (Late st Contact Info) Description 04/25/2025 9:00 AM EDT Office Visit [facility] [address] [place] [id number] Dedrick Reynolds, PharmD [address] [place] [address] Health Maintenance Due Date Last Done Comments Anxiety Screening 1974 Dental Examination 1974 Syphilis Screening 02/01/2016 01/31/2015 CT Colonography 2019 FIT/gFOBT 2019 Fecal DNA 2019 Flexible Sigmoidoscopy 2019 Retinopathy Screening 05/05/2024 05/05/2023 , 05/05/2023, 03/31/2023, Additional history exists Depression Annual Screen 08/10/2024 024, 10/06/2018, 07/05/2018 Imm-Zoster, Recombinant (1 of 2) 2024 Annual Wellness (Adult): Indicated (All Coverage) 11/30/2024 12/01/2023, 08/15/2020, 07/31/2016 Diabetes Foot Exam 11/30/2024 12/01/2023, 0 10/22/2022, 10/22/2022, Additional history exists [id number]-25 ( season) 2025 Hemoglobin A1c 04/22/2025 10/20/2024, 07/10, 03/29/2024, Additional history exists Lipid Screening 10/20/2025 10/20/2024, 11/09, 10/22/2022, Additional history exists Serum Creatinine 10/20/2025 10/20/2024, , 12/20/2021, Additional history exists Urine Albumin Creatinine Rat io Screening 10/20/2025 10/20/2024, 10/20/2024, 08/15/2020, Additional history exists Tobacco Screening 01/03/2026 01/03/2025, , 06/30/2023 Colonoscopy 01/19/2029 01/20/2024 Colorectal Cancer Screening 01/19/2029 HIV Screening Completed 01/31/2015 Hepatitis C Screening Completed 01/31/2015 Alcohol and Drug Screen Completed 01/04/20, 12/01/2023, 10/22/2022, Additional history exists Imm-DTaP/Tdap/Td Discontinued Imm-Hepatitis B Discontinued Imm-Influenza Discontinued Imm-Pneumococcal 50+ Discontinued Procedures Procedure Name Priority Date/Time Associated Diagnosis Comments MICROALBUMIN/CREATIN INE RATIO, URINE, RANDOM Routine 10/20/2024 9:24 AM EDT Type 2 diabetes mellitus with both eyes affected by mild nonproliferative retinopathy without macular edema, with long-term current use of insulin ([facility]) COMPREHENSIVE METABOLIC PANEL Routine 10/20/2024 9:11 AM EDT Type 2 diabetes mellitus with both eyes affected by mild nonproliferative retinopathy without macular edema, with long-term current use of insulin ([facility]) LIPID PANEL Routine 10/20/2024 9:11 AM EDT Type 2 diabetes mellitus with both eyes affected by mild nonproliferative retinopathy without macular edema, with long-term current use of insulin ([facility]) HEMOGLOBIN GLYCOSYLATED A1C Routine 10/20/2024 9:11 AM EDT Type 2 diabetes mellitus with both eyes affected by mild nonproliferative retinopathy without macular edema, with long-term current use of insulin ([facility]) COLONOSCOPY Routine 01/20/2024 9:48 AM EDT EYE EXAM 05/05/2023 3:00 AM EDT ANTIBODY HIV-1&HIV-2 SINGLE RESULT Routine 01/31/2015 8:45 AM EDT Screening examination for venereal disease TREPONEMA PALLIDUM ANTIBODIES Routine 01/31/2015 8:45 AM EDT Routine health maintenance HEPATITIS A,B,C PANEL Routine 01/31/2015 8:45 AM EDT Routine health maintenance Screening examination for venereal disease from Last 3 Months or Most Recently Relevant to Health Maintenance Results * (ABNORMAL) MICROALBUMIN/CREATININE RATIO, URINE, RANDOM (10/20/2024 9:24 AM EDT) CREATININE, RANDOM URINE 120 20 - 320 mg/dL [facility] MICROALBUMIN 5.1 mg/dL [facility] Comment: Reference Range Not established MICROALBUMIN/CREA TININE RATIO, RANDOM URINE 43(H) <30 mg/g creat [facility] Comment: The ADA defines abnormalities in albumin excretion as follows: Albuminuria Category Result (mg/g creatinine) Normal to Mildly increased <30 Moderately increased 30-299 Severely increased > OR = 300 The ADA recommends that at least two of three specimens collected within a 3-6 month period be abnormal before considering a patient to be within a diagnostic category. Urine Urine specimen / Unknown 10/20/2024 9:24 AM EDT 10/20/2024 9:26 AM EDT Narrative [facility] - 10/21/2024 5:11 PM EDT SPLIT 10/20/2024 FROM [id number] DROPPED OFF. Ruel Franklin [facility] URINE AMBULATORY Gale l Result [facility] [address] [place] [address], [facility] [address] [place] [phone] * (ABNORMAL) HEMOGLOBIN GLYCOSYLATED A1C (10/20/2024 9:11 AM EDT) HEMOGLOBIN A1C 6.8(H) <5.7 % of total Hgb [facility] Comment: For someone without known diabetes, a [...] A1c for diagnosis of diabetes for children. Blood Blood / Unknown 10/20/2024 9 :11 AM EDT 10/20/2024 9:12 AM EDT Narrative [employer] [facility] [employer] - 10/21/2024 5:29 AM EDT FASTING:NO PATIENT UNABLE TO VOID; ADVISED TO RETURN FOR COLLECTION. Ruel JONESP LAB - BLOOD DRAW Final Re sult [facility] [address] [address], [facility] [address] [address] * (ABNORMAL) LIPID PANEL (10/20/2024 9:11 AM EDT) CHOLESTEROL, TOTAL 177 <200 mg/dL [facility] HDL CHOLESTEROL 47 > OR = 40 mg/dL [facility] TRIGLYCERIDES 104 <150 mg/dL [facility] LDL-CHOLESTEROL 109(H) 99 mg/dL (calc) [facility] Comment: Reference range: <100 Desirable range <100 mg/dL for primary prevention; <70 mg/dL for patients with CHD or diabetic patients with > or = 2 CHD risk factors. LDL-C is now calculated using the Tong-Juan David calculation, which is a validated novel method providing better accuracy than the Friedewald equation in the estimation of LDL-C. Tong SS et al. NELIDA. 2013;310(19): 4704-4673 (http://education.[employer].CrayonPixel/faq/QXN775) CHOL/HDLC RATIO 3.8 <5.0 (calc) [facility] NON-HDL CHOLESTEROL 130(H) <130 mg/dL (calc) [facility] Comment: For patients with diabetes plus 1 major ASCVD risk factor, treating to a non-HDL-C goal of <100 mg/dL (LDL-C of <70 mg/dL) is considered a therapeutic option. Blood Blood / Unknown 10/20/2024 9 :11 AM EDT 10/20/2024 9:12 AM EDT Narrative [facility] [facility] - 10/21/2024 5:29 AM EDT FASTING:NO PATIENT UNABLE TO VOID; ADVISED TO RETURN FOR COLLECTION. Ruel Franklin BREAKDOWN MILL OPERATOR LAB - BLOOD DRAW Final Re sult [facility] [facility] [address] [address], [facility] [address] [place] [address] * COMPREHENSIVE METABOLIC PANEL (10/20/2024 9:11 AM EDT) GLUCOSE 106 65 - 139 mg/dL [facility] Comment: Non-fasting reference interval UREA NITROGEN (BUN) 15 7 - 25 mg/dL [facility] CREATININE (blood) 0.79 0.70 - 1.30 mg/dL [facility] EGFR 108 > OR = 60 mL/min/1. 73m2 [facility] BUN/CREATININE RATIO SEE NOTE: [facility] Comment: Not Reported: BUN and Creatinine are within reference range. SODIUM 141 135 - 146 mmol/L [facility] POTASSIUM 4.2 3.5 - 5.3 mmol/L [facility] CHLORIDE 102 98 - 110 mmol/L [facility] CARBON DIOXIDE 31 20 - 32 mmol/L [facility] CALCIUM 8.9 8.6 - 10.3 mg/dL [facility] PROTEIN, TOTAL 6.8 6.1 - 8.1 g/dL [facility] ALBUMIN 4.5 3.6 - 5.1 g/dL [facility] GLOBULIN 2.3 1.9 - 3.7 g/dL (calc) [facility] ALBUMIN/GLOBULI N RATIO 2.0 1.0 - 2.5 (calc) [facility] BILIRUBIN, TOTAL 0.8 0.2 - 1.2 mg/dL [facility] ALKALINE PHOSPHATASE 53 35 - 144 U/L [facility] AST 19 10 - 35 U/L [facility] ALT 30 9 - 46 U/L [facility] Blood Blood / Unknown 10/20/2024 9 :11 AM EDT 10/20/2024 9:12 AM EDT Narrative [employer] [facility] - 10/21/2024 5:29 AM EDT FASTING:NO PATIENT UNABLE TO VOID; ADVISED TO RETURN FOR COLLECTION. Ruel Franklin BREAKDOWN MILL OPERATOR LAB - BLOOD DRAW Edited R esult - Final Performing Organization Address City/[facility]/ZIP Co de Phone Number [employer] [address] [address], [employer] [facility] [address] [place] [address] * COLONOSCOPY (01/20/2024 9:48 AM EDT) Provider [facility] PROCEDURES Final Result * EYE EXAM (05/05/2023 3:00 AM EDT) 05/05/2023 3:00 AM EDT Son Ayala BREAKDOWN MILL OPERATOR-C OTHER Final Res ult * (ABNORMAL) HEPATITIS A,B,C PANEL (01/31/2015 8:45 AM EDT) HEPATITIS B SURFACE ANTIBODY POSITIVE(A) NEGATIVE [facility] HEPATITIS B SURFACE ANTIGEN NEGATIVE NEGATIVE [facility] HEPATITIS C VIRUS DIAGNOSTIC NEGATIVE NEGATIVE [facility] HEPATITIS A ANTIBODY TOTAL POSITIVE(A) NEGATIVE [facility] HEPATITIS B CORE ANTIBODY NEGATIVE NEGATIVE [facility] Blood specimen (specimen) Blood / Unknown 01/31/2015 8:45 AM EDT 01/31/2015 8:49 AM EDT Narrative [facility] - 01/31/2015 12:35 PM EDT [employer] [address] [place] [address] PT ID [id number] ORD# [id number] Shira Olmedo ANP LAB - BLOOD DRAW Edited Resul t - Final Performing Organization Address [facility]/ZIP Co de Phone Number [facility] [address] [place] [address], * TREPONEMA PALLIDUM ANTIBODIES (01/31/2015 8:45 AM EDT) TREPONEMAL AB NEGATIVE NEGATIVE [facility] 01/31/2015 8:45 AM EDT 01/31/2015 8:49 AM EDT [facility] - 01/31/2015 1:11 PM EDT [employer] [address] [place] [address] PT ID [id number] ORD# [id number] Shira Olmedo ANP LAB - BLOOD DRAW Final Result [address] [address], * HIV-1 & HIV-2 ANTIBODIES (01/31/2015 8:45 AM EDT) HIV 1 AND 2 ANTIBODY SCREEN NEGATIVE NEGATIVE [facility] Blood specimen (specimen) Blood / Unknown 01/31/2015 8:45 AM EDT 01/31/2015 8:49 AM EDT [facility] - 01/31/2015 9:26 PM EDT [employer] [address] [place] [address] [place] [id number] ORD# [id number] Shira YOO LAB - BLOOD DRAW Final Result [address] [address], [place] [phone] from Last 3 Months or Most Recently Relevant to Health Maintenance Insurance [employer] Member Subscriber Plan / Payer (Ef fective 2024-Present) Name:Cale Durant Relation to Subscriber:Self Name:Cale Durant Payer ID:[id number] Type:Indemnity Address: [facility] [address] [place] [address] Care Teams Bank Worker Relationship Specialty Start Date End Date Ruel Franklin FNP [facility] [place] [address] PCP - General Family Medicine, MECHANIC INSULATOR 07/07/20
[2025-04-14 01:31] LABS: INTERNATIONAL NORM RATIO 1.0 (0.9-1.1); Prothrombin Time 11.6 SEC (10.9-12.4)
[2025-04-14 01:43] LABS: B Type Natriuretic Peptide 19 pg/mL (<100)
[2025-04-14 01:54] LABS: D Dimer High Sensitivity < 150 NG/ML
[2025-04-14 05:47] LABS: Troponin-I High Sensitivity 30.6 ng/L (<3.5-35.0)
== END 2025-04-14 06:50 | disposition home or self-care (01) ==
PROVIDERS: Emergency Provider Emergency Medicine; PCP Nurse Practitioner Family
DX: R00.2 Palpitations (principal); R07.89 Other chest pain; I10 Essential (primary) hypertension; E11.9 Type 2 diabetes mellitus without complications; Z79.899 Other long term (current) drug therapy
CPT/HCPCS: 36415; 71045; 80053; 83880; 84484; 85025; 85379; 85610; 93005; 96374; 96375; 99284; 99285; J0616; J2270

== ENCOUNTER → 2025-04-14 00:31 | Outpatient (BNV) | payer OTHER, SELFPAY | PROVIDERS: Emergency Provider Emergency Medicine; PCP Nurse Practitioner Family; Visit Provider Internal Medicine Cardiovascular Disease | DX: Z13.6 Encounter for screening for cardiovascular disorders (principal); I49.8 Other specified cardiac arrhythmias | CPT/HCPCS: 93010 ==

== ENCOUNTER → 2025-04-14 01:03 | Outpatient (BNV) | payer OTHER, SELFPAY | PROVIDERS: Emergency Provider Emergency Medicine; PCP Nurse Practitioner Family; Visit Provider Radiology Diagnostic Radiology | DX: R07.89 Other chest pain (principal); R06.02 Shortness of breath | CPT/HCPCS: 71045 ==